=== PATIENT | male | born 1950 | race Caucasian/White ===

== ENCOUNTER 2024-05-29 15:28 | Emergency (ER) | payer MEDICARE, SELFPAY ==
[2024-05-29] VITALS (10 sets, daily range): BP systolic 90–135; BP diastolic 53–79; PULSE 68–83; RESP 16–21; TEMP 37; O2SAT 18–97
--- NOTE | ~2024-05-29 | XR_ITS ---
XR chest 1V portable Ordering provider: Theo Thompson MD History: 73 years Male with . LT side rib pain . Comparison: None. FINDINGS: MEDIASTINUM: The cardiac silhouette is not enlarged. Prominent both braydon. LUNGS: No effusions or pneumothorax. Bilateral interstitial thickening which may indicate pneumonitis . Clinical correlation advised. OTHER: No free air under the diaphragm. Degenerative changes of the spine. Vertebroplasty seen in the upper thoracic area. IMPRESSION: Bilateral interstitial thickening which may indicate pneumonitis. Clinical correlation and follow-up advised. Reviewed, dictated and finalized at location A. IMPRESSION: Bilateral interstitial thickening which may indicate pneumonitis. Clinical jessica elation and follow-up advised.
--- NOTE | 2024-05-29 16:05 | ECG_ITS ---
Test Date: 2024-05-29 15:30:27 Measurements Intervals [place] Rate: 83 P: 47 IA: 189 QRS: -56 QRSD: 130 T: 62 QT: 396 QTc: 466 Interpretive Statements SINUS RHYTHM INCOMPLETE RIGHT BUNDLE BRANCH BLOCK LEFT ANTERIOR FASCICULAR BLOCK CONSIDER HIGH LATERAL INFARCT, AGE INDETERMINATE ABNORMAL ECG No previous ECG available for comparison Electronically Signed On 05-29-2024 16:09:10 CDT by Juan Daniel Cristina D.O.
[2024-05-29 16:26] LABS: Basophils Absolute Auto 0.06 K/mm3 (0.00-0.10); Basophils Percent Auto 0.7 % (0.0-1.0); Eosinophils Absolute Auto 0.45 K/mm3 (0.02-0.50); Hematocrit 39.9 % (37.0-46.0); Hemoglobin 13.1 g/dL (12.4-15.3); Immature Granulocyte Absolute 0.04 K/mm3 (0.00-0.00); Immature Granulocyte Percent A 0.4 % (0.0-0.0); Lymphocytes Absolute Auto 1.84 K/mm3 (1.10-4.50); Lymphocytes Percent Auto 20.6 % (18.0-42.0); Mean Corpuscular HGB Conc 32.8 g/dL (32-36); Mean Corpuscular Hemoglobin 30.8 pg (27.0-31.0); Mean Corpuscular Volume 93.7 fL (78.0-102.0); Mean Platelet Volume 9.6 fl (8.7-11.0); Monocytes Absolute Auto 0.76 K/mm3 (0.10-0.90); Monocytes Percent Auto 8.5 % (2.0-11.0); Neutrophils Percent Auto 64.8 % (50.0-70.0); Platelet Count Result 258 K/mm3 (150-420); Red Blood Count 4.26 M/mm3 (4.70-6.10)
--- OUTSIDE RECORDS SUMMARY | 2024-05-29 16:31 | XMS_ITS | Clinical Summary ---
Author Organization [facility] de Address [address] [address] Phone Care Team Providers Care Zinc Plater Name Role Phone Ele Oropeza PANAMA HAT SMEARER Primary Care Provider [phone] Allergies No known active allergies Medications MELATONIN ORAL Take 1 Tablet by mouth nightly as needed. 9 Active calcium carb-vitamin D3-vit K2 500 mg calcium- 200 unit-90 mcg Tablet Take by mouth. 1 Active albuterol HFA 90 mcg inhaler Take 2 Puffs by inhalation every 6 hours as needed for Shortness of Breath. Unsure of dosage 1 Active clopidogreL (PLAVIX) 75 mg Tablet TAKE 1 TABLET BY MOUTH ONCE DAILY IN THE MORNING 60 Tablet 5 1 Active atorvastatin (LIPITOR) 40 mg tablet Take 40 mg by mouth Daily LATE. 5 Active aspirin (ECOTRIN EC) 81 mg Tablet, Delayed Release (E.C.) Take 81 mg by mouth daily with breakfast. 5 Active amLODIPine (NORVASC) 5 mg tablet Take 5 mg by mouth daily with breakfast. 7 Active losartan (COZAAR) 100 mg tablet Take 100 mg by mouth daily. 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 Hyperlipidemia 08/21/2014 AAA (abdominal aortic aneurysm) 08/21/2014 Current smoker 08/21/2014 Resolved Problems Problem Noted Date Diagnosed Date Resolved Date Atherosclerosis of belkofski ar rene of extremity with rest pain 04/15/2017 05/10/2017 Encounters Date Type Department Care Team Description 04/23/2024 External Device Data STL ABSTRACTION Provider, Abstract 04/03/2024 External Device Data STL ABSTRACTION Provider, Abstract 03/07/2024 External Device Data STL ABSTRACTION Provider, Abstract 03/06/2024 External Device Data STL ABSTRACTION Provider, Abstract from Last 3 Months Social History Tobacco Use Types Packs/Day Years Used Date Smoking Tobacco: Every Day Cigarettes Smokeless Tobacco: Never Tobacco Cessation:Ready to Q uit: Not Asked; Counseling Given: Not Answered Comments:Quit smoking: Currently smokes .5 ppd - 02/19/20 Alcohol Use Standard Drinks/Week Comments Not Asked 0 (1 standard drink = 0.6 oz pur e alcohol) Sex and Gender Information Value Date Recorded Sex Assigned at Not on file Legal Sex Male 1:27 AM DOLLYMAN Gender Identity Not on file Sexual Orientation Not on file Last Filed Vital Signs Vital Sign Reading Time Taken Comments Blood Pressure 118/60 03/02/2023 10:36 AM DOLLYMAN Pulse 65 03/02/2023 10:36 AM DOLLYMAN Temperature 36.4 C (97.5 F) 04/17/2017 7:13 AM DOLLYMAN Respiratory Rate 15 04/17/2017 7:13 AM DOLLYMAN Oxygen Saturation 96% 03/02/2023 10:36 AM DOLLYMAN Inhaled Oxygen Concentration - - Weight 77.6 kg (171 lb) 03/02/2023 10:36 AM DOLLYMAN Height 165.1 cm (5' 5 ) 03/02/2023 10:36 AM DOLLYMAN Body Mass Index 28.46 03/02/2023 10:36 AM DOLLYMAN Plan of Treatment Health Maintenance Due Date Last Done Comments FIT-DNA Q 3 years 11/11/1995 FIT/FOBT Q 1 year 11/11/1995 Flex Sig/CT Colonography Q 5 years 11/11/1995 ZOSTER VACCINE (1 of 2) 2000 RSV VACCINE (60+ or ) (1 - Risk 60-74 years 1-dose series) 2010 PNEUMOCOCCAL VACCINE 50+ YEA RS (2 of 2 - PPSV23) 02/23/2019 12/29/2018 INFLUENZA VACCINE (#1) 2023 0, 11/15/2018, 11/21/2017 COVID-19 Vaccine (3 - 2024-2 5 season) 2023 07/30/2020, 07/02/2020 COLORECTAL SCREENING 11/23/2025 11/24/2015 Colorectal Cancer Screening 11/23/2025 DTAP/TDAP/TD VACCINES (3 - T d or Tdap) 07/30/2027 07/29/2017, 02/15/2012 Abdominal Aortic Aneurysm (A AA) Screening Completed 03/02/2023, 02/24/2022, 02/19/2020, Additional history exists Medical Devices Implanted Type Area Costumed Character Entertainer Device Identifier Shelf Expiration Date Model / Serial / Lot Stent Xcldr C3 Trnk-Ipsilat Leg [id number] - [id number] Implanted:Qty: 1 on 08/21/2014 by Guanakito Inman MD Stent N/A: Abdomen [employer] 08/13/2016 [id number] / [id number] / Stent Xcldr Contralat Leg [id number] - [id number] Implanted:Qty: 1 on 08/21/2014 by Guanakito Inman MD Stent N/A: Abdomen [employer] 03/16/2017 [id number] / [id number] / Description:left common femo ral Stent Abslt Pv [id number] - Sna Implanted:Qty: 1 on 04/15/2017 by Marcel Ling MD Stent Left: Iliac Artery MCCABE- VASC DEVICE 01/14/2020 [id number] / [id number] / [id number] Description:External iliac a rtery Stent Xcldr Contralat Leg [id number] - [id number] Implanted:Qty: 1 on 04/15/2017 by Marcel Ling MD Stent Left: Aorta [employer] 04/17/2018 [id number] / [id number] / NA Stent Xcldr Iliac Data Integrity Specialist [id number] - [id number] Implanted:Qty: 1 on 04/15/2017 by Marcel Ling MD Stent Left: Iliac Artery [employer] 09/11/2018 [id number] / [id number] / NA Stent Ovation Ix Iliac Limb [id number] - Sn/A Implanted:Qty: 2 on 04/16/2017 by Marcel Ling MD Stent Right: Aorta TRIVASCULAR, INC. 01/28/2020 [id number] 100-J / N/A / [id number] Procedures Procedure Name Priority Date/Time Associated Diagnosis Comments US AORTA IVC ILIAC DUPLEX LTD Routine 03/02/2023 10:06 AM DOLLYMAN Abdominal aortic aneurysm (AAA) without rupture, unspecified part S/P AAA repair using bifurcation graft from Last 3 Months or Most Recently Relevant to Health Maintenance Results * AORTA IVC ILIAC DUPLEX LTD (03/02/2023 10:06 AM DOLLYMAN) Anatomical Region Laterality Modality Abdomen Ultrasound 03/02/2023 9:18 AM DOLLYMAN Narrative 03/07/2023 10:12 AM [facility] [address] [place] [address] [place] [id number] Noninvasive Vascular Lab Limited Abdominal Ultrasound Evaluation Patient: Caio Hanson Study ID: US AORTA IVC CHAS Gender: M : 1950 Age: 72 Room: Height: 165cm Weight: 76.7kg BSA: 1.9m^2 Pt status: Study Date: 03/02/2023 Study Time: 09:18:03 AM BSA: 1.9m^2 Ordering: Giuseppe Guardado Interpreting:Giuseppe Guardado Police Sergeant Precinct: Marilee Le Indications: Known disease. AAA with repair History: Risk factors: The patient is a current tobacco user. Hypertension. Summary Impression: 1. Moderate, dense, diffuse atherosclerosis involving the vessels assessible to study on exam. Heavy acoustic shadowing is noted due to atherosclerosi and or abdominal gas. 2. No evidence of significant change in dimension of the known abdominal aortic aneurysm. 3. Patent endograft with no evidence of endoleak is observed on exam. Recommendations: Due to excess bowel gas, patient is advised to prep prior to the next ultrasound exam. Study data: Limited abdominal ultrasound evaluation. Duplex scan. Height: 165cm. Height: 65in. Weight: 76.7kg. Weight: 169.1lb. BMI: 28.2kg/m^2. BSA: 1.9m^2. Aorta and systemic arteries: Abdominal aorta: The vessel is well visualized. Arterial flow: - Abdominal aorta proximal: Abdominal aorta proximal Obscured by bowel gas. - Abdominal aorta mid: Abdominal aorta mid 0.82m/sec 2.90 x 2.61 cm. - Abdominal aorta distal: Abdominal aorta distal 0.57m/sec 3.16 x 2.92 cm - Right common iliac: Right common iliac 1.83m/sec 1.24 x 1.18 cm. - Left common iliac: Left common iliac 0.59m/sec 1.36 x 1.31 cm. [facility] is accredited with the Intersocietal Commission for the Accreditation of Vascular Laboratories (ICAVL) Prepared and Electronically Authenticated Giuseppe Guardado Confirmed 03/07/2023 10:12 Procedure Note Giuseppe Guardado MD - 03/07/2023 [facility] [address] [place] [id number] Noninvasive Vascular Lab Limited Abdominal Ultrasound Evaluation Patient: Caio Hanson Study ID: US AORTA IVC CHAS Gender: M : 1950 Age: 72 Room: Height: 165cm Weight: 76.7kg BSA: 1.9m^2 Pt status: Study Date: 03/02/2023 Study Time: 09:18:03 AM BSA: 1.9m^2 Ordering: Giuseppe Guardado Interpreting:Giuseppe Guardado Police Sergeant Precinct: Marilee Le Indications: Known disease. AAA with repair History: Risk factors: The patient is a current tobacco user.Hypertension. Summary Impression: 1. Moderate, dense, diffuse atherosclerosis involving the vesselsassessible to study on exam. Heavy acoustic shadowing is noted due toatherosclerosi and or abdominal gas. 2. No evidence of significant change in dimension of the known abdominal aortic aneurysm. 3. Patent endograft with no evidence of endoleak is observed on exam. Recommendations: Due to excess bowel gas, patient is advised to prepprior to the next ultrasound exam. Study data: Limited abdominal ultrasound evaluation. Duplex scan. Height: 165cm. Height: 65in. Weight: 76.7kg. Weight: 169.1lb. BMI: 28.2kg/m^2. BSA: 1.9m^2. Aorta and systemic arteries: Abdominal aorta: The vessel is well visualized. Arterial flow: - Abdominal aorta proximal: Abdominal aorta proximal Obscured by bowelgas. - Abdominal aorta mid: Abdominal aorta mid 0.82m/sec 2.90 x 2.61 cm. - Abdominal aorta distal: Abdominal aorta distal 0.57m/sec 3.16 x 2.92cm - Right common iliac: Right common iliac 1.83m/sec 1.24 x 1.18 cm. - Left common iliac: Left common iliac 0.59m/sec 1.36 x 1.31 cm. [facility] is accredited withthe Intersocietal Commission for the Accreditation of Vascular Laboratories (ICAVL) Prepared and Electronically Authenticated Giuseppe Guardado Confirmed 03/07/2023 10:12 Giuseppe Guardado MD ORDERABLES Hilda cat Result from Last 3 Months or Most Recently Relevant to Health [place] [address] [address] [facility] [id number] Care Teams Zinc Plater Relationship Specialty Start Date End Date Ele Oropeza NP [address] [place] [address] PCP - General 05/23/20
--- OUTSIDE RECORDS SUMMARY | 2024-05-29 16:31 | XMS_ITS | Encounter Summary ---
Author Organization [facility] Address [address] [place] [address] Care Team Providers Care Tea Leaf Reader Name Role Phone Sandip Ele L PEARL TECHNICIAN Primary Care Provider [phone] Reason for Referral * Outpatient Services (Routine) - Closed Specialty Diagnoses / Procedures Referred By Contac t Referred To Contact Diagnoses AAA (abdominal aortic aneurysm) without rupture Procedures CL ARTERIAL FEMORAL RUNOFF Guanakito Inman MD Phone: tel:[phone] fax:[phone] Referral ID Status Reason Start Date Expiration Date Visits Re quested Visits Authorized [id number] Closed 08/21/2014 09/21/2015 1 1 Encounter Details Date Type Department Care Team (Latest Contact Info) Description 08/21/2014 Ancillary Orders [facility] Interventional Radiology OR [address] [place] [id number] Guanakito Inman MD [address] [place] [address] AAA (abdominal aortic aneurysm) without rupture (Primary Dx) Social History Tobacco Use Types Packs/Day Years Used Date Smoking Tobacco: Every Day Cigarettes 0.5 30 Smokeless Tobacco: Never Comments:Currently smokes .5 0 ppd, 08/01/14 Alcohol Use Standard Drinks/Week Comments Not Asked 0 (1 standard drink = 0.6 oz pur e alcohol) occ. Sex and Gender Information Value Date Recorded Sex Assigned at Not on file Legal Sex Male 3:44 PM CDT Gender Identity Not on file Sexual Orientation Not on file documented as of this encounter Plan of Treatment Not on file documented as of this encounter Results * CL ARTERIAL FEMORAL RUNOFF (08/21/2014 9:02 AM CDT) Narrative Bar Mcdermott Deborah - 11/28/2020 1:35 PM CDT Order information only. Exam was auto-finalized as part of the [email or web address] Single Instance conversion project. Procedure Note Bar Mcdermott Deborah - 11/28/2020 Order information only. Exam was auto-finalized as part of the [employer] Single Instance conversion project. Guanakito Inman MD FLUOROSCOPY ORDERABLES Fi nal Result documented in this encounter Visit Diagnoses Diagnosis AAA (abdominal aortic aneurysm) without rupture- Primary Abdominal aneurysm without mention of rupture documented in this encounter Care Teams Tea Leaf Reader Relationship Specialty Start Date End Date Ele Oropeza NP [address] [place] [address] PCP - General NURSE PRACTITIONER 01/22/19 documented as of this encounter
--- OUTSIDE RECORDS SUMMARY | 2024-05-29 16:31 | XMS_ITS | Continuity of Care Document ---
Author Organization [facility] Address [address] [place] [address] [address] [place] [address] Phone Care Team Providers Care Wireless Internet Installer Name Role Phone [facility] Unavailable Unavail able Jo Ceron Unavailable Unavailable Procedures Procedure Date Vision Svcs Frames Purchases BF Plastic Sphcyl [place] To +/-4d .12-2d Tax - Medical Eye Exam, New Patient Refraction Advance Directives Directive Yes / No Effective Date File Name No Information Encounters Encounter Description Practice Location Reason(s) For Visit Diagnoses Date Provider Providers Copied on Encounter [facility], [address] [place] [address] [facility] [address], [place], [place], [id number], [place] tel:[phone] [facility] No Information Apr-0 4200 8 [facility] . [address] [facility], [facility] [address], [place], [id number], [place]. tel:[phone] Referring Provider: Mar yBeth Lopez, [address], [place], [address]. tel:[phone] g Provider: Jo Ceron, [address] [facility], [place], [address]. tel:[phone] [facility], [address] [place] [address] [address], [place], [place], [id number], [place] tel:[phone] [facility] No Information May-0 4200 8 Nilda Clinton. [address] , [address], [place], [address], [place]. tel:[phone] Family History Family Member Type Diagnosis Age At Onset No Information Payers Payer name Insurance type Covered alliance party ID Authoriza tion(s) No Information Social History Type Description Quantity Date Captured Comments Sex Male Smoking Status No Information Chief Complaint And Reason For Visit No Information Reason For Referral Reason For Referral No Information History Of Present Illness Encounter Date Complaint History Of Prese nt Illness No Information Functional Status Date Functional Assessmen t No Information Instructions Date Instruction Additional Infor mation No Information Assessments Type Assessment Date No Information Patient Care Teams Name Effective Dates (start - stop) Status Members No Information
--- OUTSIDE RECORDS SUMMARY | 2024-05-29 16:31 | XMS_ITS | Clinical Summary ---
Author Organization [facility] de Address [address] [address] Phone Care Team Providers Care Repair Mechanic Name Role Phone Sandip Ele L SPEAKER MOUNTER Primary Care Provider [phone] Allergies No known active allergies Medications atorvastatin (LIPITOR) 40 mg tablet Take 40 mg by mouth Daily LATE. Active aspirin (ECOTRIN EC) 81 mg Tablet, Delayed Release (E.C.) Take 81 mg by mouth daily with breakfast. Active losartan (COZAAR) 100 mg tablet Take 100 mg by mouth daily. Active amLODIPine (NORVASC) 5 mg tablet Take 5 mg by mouth daily with breakfast. Active MELATONIN ORAL Take 1 Tablet by mouth nightly as needed. Active albuterol HFA 90 mcg inhaler Take 2 Puffs by inhalation every 6 hours as needed for Shortness of Breath. Unsure of dosage Active calcium carb-vitamin D3-vit K2 500 mg calcium- 200 unit-90 mcg Tablet Take by mouth. 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 AAA (abdominal aortic aneurysm) 08/21/2014 Current smoker 08/21/2014 Hyperlipidemia 08/21/2014 Resolved Problems Problem Noted Date Diagnosed Date Resolved Date Atherosclerosis of nisqually ar rene of extremity with rest pain 04/15/2017 05/10/2017 Social History Tobacco Use Types Packs/Day Years Used Date Smoking Tobacco: Every Day Cigarettes 1.5 40 Smokeless Tobacco: Never Comments:Currently smokes .5 ppd - 02/19/20 Alcohol Use [...] Sign Reading Time Taken Comments Blood Pressure 112/55 02/19/2020 12:01 PM RED HAT OPEN STACK ADMINISTRATOR Pulse 85 02/19/2020 12:01 PM RED HAT OPEN STACK ADMINISTRATOR Temperature 36.4 C (97.5 F) 04/17/2017 7:13 AM RED HAT OPEN STACK ADMINISTRATOR Respiratory Rate 15 04/17/2017 7:13 AM RED HAT OPEN STACK ADMINISTRATOR Oxygen Saturation 97% 02/19/2020 12:01 PM RED HAT OPEN STACK ADMINISTRATOR Inhaled Oxygen Concentration - - Weight 73 kg (161 lb) 02/19/2020 12:01 PM RED HAT OPEN STACK ADMINISTRATOR Height 167.6 cm (5' 6 ) 02/19/2020 12:01 PM RED HAT OPEN STACK ADMINISTRATOR Body Mass Index 25.99 02/19/2020 12:01 PM RED HAT OPEN STACK ADMINISTRATOR Plan of Treatment Health Maintenance Due Date Last Done Comments DTAP/TDAP/TD VACCINES (1 - Tdap) 1969 PNEUMOCOCCAL VACCINE 50+ YEARS (1 of 2 - PCV) 11/10/18 70 COLORECTAL SCREENING 11/11/1995 Colorectal Cancer Screening 11/11/1995 FIT-DNA Q 3 years 11/11/1995 FIT/FOBT Q 1 year 11/11/1995 Flex Sig/CT Colonography Q 5 years 11/11/1995 ZOSTER VACCINE (1 of 2) 2000 INFLUENZA VACCINE (#1) 2023 RSV VACCINE (60+ or ) (1 - 1-dose 75+ series) 2025 Medical Devices Implanted Type Area Plastic Mould Maker Device Identifier Shelf Expiration Date Model / Serial / Lot Stent Xcldr C3 Trnk-Ipsilat Leg [id number] - [id number] Implanted:Qty: 1 on 08/21/2014 by Guanakito Inman MD at [facility] Stent N/A: Abdomen [employer] 08/13/2016 [id number] / [id number] / Stent Xcldr Contralat Leg [id number] - [id number] Implanted:Qty: 1 on 08/21/2014 by Guanakito Inman MD at [facility] Stent N/A: Abdomen [employer] 03/16/2017 [id number] / [id number] / Description:left common femo ral Stent Xcldr Contralat Leg [id number] - [id number] Implanted:Qty: 1 on 04/15/2017 by Marcel Ling MD at [facility] Stent Left: Aorta [employer] 04/17/2018 [id number] / [id number] / NA Stent Xcldr Iliac Hot Box Checker [id number] - [id number] Implanted:Qty: 1 on 04/15/2017 by Marcel Ling MD at [facility] Stent Left: Iliac Artery [employer] 09/11/2018 [id number] / [id number] / NA Stent Abslt Pv [id number] - Sna Implanted:Qty: 1 on 04/15/2017 by Marcel Ling MD at [facility] Stent Left: Iliac Artery MCCABE- VASC DEVICE 01/14/2020 [id number] 0 / [id number] / [id number] Description:External iliac a rtery Stent Ovation Ix Iliac Limb [id number] - Sn/A Implanted:Qty: 2 on 04/16/2017 by Marcel Ling MD at [facility] Stent Right: Aorta TRIVASCULAR[employer] INC. 01/28/2020 [id number] 100-J / N/A / [id number] Insurance [place] [id number] [facility] DUAL COMPLETE Advance Directives For more information, please contact: [phone] * Full Code (Latest Code Status on File) Date Activated Date Inactivated Comments 04/16/2017 4:30 PM 04/17/2017 2:21 PM * Full Code Date Activated Date Inactivated Comments 08/21/2014 4:44 PM 08/22/2014 2:20 PM Care Teams Repair Mechanic Relationship Specialty Start Date End Date Ele Oropeza NP [address] [place] [address] PCP - General NURSE PRACTITIONER 01/22/19
[2024-05-29 16:45] LABS: Alanine Aminotransferase 18 U/L (16-63); Albumin Level 3.4 g/dL (3.4-5.0); Alkaline Phosphatase 141 U/L (46-116); Anion Gap 9 mmol/L (4-12); Aspartate Amino Transferase 18 U/L (15-37); Bilirubin,Total 0.6 mg/dL (0.00-1.00); Blood Urea Nitrogen 21 mg/dL (7-18); Carbon Dioxide 28 mmol/L (21-32); Chloride 105 mmol/L (98-108); Estimated CRCL calculation 51 ml/min; Estimated Glomerular Filt Rate > 60; Glucose 96 mg/dL (70-99); Osmolality Calculated 297 mOsm/kg (285-295); Potassium 4.4 mmol/L (3.5-5.1); Sodium 142 mmol/L (136-145); Total Protein 7.9 g/dL (6.4-8.2); Troponin I 15.9 ng/L (0.00-60.4)
[2024-05-29] MEDS: KETOROLAC (*BKC) 60 MG/2 ML VIAL IM (16:45)
--- OUTSIDE RECORDS SUMMARY | 2024-05-29 16:55 | XMS_ITS | Clinical Summary ---
Author Organization [facility] de Address [address] [address] Phone Care Team Providers Care Tearer Name Role Phone Sandip Ele L ALL ROUND LOGGER Primary Care Provider [phone] Allergies No known active allergies Medications atorvastatin [...] Date Diagnosed Date Resolved Date Atherosclerosis of pala ar rene of extremity with rest pain [...] Comments Blood Pressure 112/55 02/19/2020 12:01 PM CRITICAL CARE NURSE SPECIALIST Pulse 85 02/19/2020 12:01 PM CRITICAL CARE NURSE SPECIALIST Temperature 36.4 C (97.5 F) 04/17/2017 7:13 AM CRITICAL CARE NURSE SPECIALIST Respiratory Rate 15 04/17/2017 7:13 AM CRITICAL CARE NURSE SPECIALIST Oxygen Saturation 97% 02/19/2020 12:01 PM CRITICAL CARE NURSE SPECIALIST Inhaled Oxygen Concentration - - Weight 73 kg (161 lb) 02/19/2020 12:01 PM CRITICAL CARE NURSE SPECIALIST Height 167.6 cm (5' 6 ) 02/19/2020 12:01 PM CRITICAL CARE NURSE SPECIALIST Body Mass Index 25.99 02/19/2020 12:01 PM CRITICAL CARE NURSE SPECIALIST Plan of Treatment Health Maintenance Due Date [...] series) 2025 Medical Devices Implanted Type Area Tire Wrapper Device Identifier Shelf Expiration Date Model / Serial / Lot Stent Xcldr C3 Trnk-Ipsilat Leg [id number] - [id number] Implanted:Qty: 1 on 08/21/2014 by Guanakito Inman MD at [facility] Stent N/A: Abdomen [employer] 08/13/2016 [id number] / [id number] / Stent Xcldr Contralat Leg [id number] - [id number] Implanted:Qty: 1 on 08/21/2014 by Guanakito Inman MD at [facility] Stent N/A: Abdomen [employer] 03/16/2017 [id number] / [id number] / Description:left common femo ral Stent Xcldr Contralat Leg [id number] - [id number] Implanted:Qty: 1 on 04/15/2017 by Marcel Ling MD at [facility] Stent Left: Aorta [employer] 04/17/2018 [id number] / [id number] / NA Stent Xcldr Iliac Employment Adjudicator [id number] - [id number] Implanted:Qty: 1 on 04/15/2017 by Marcel Ling MD at [facility] Stent Left: Iliac Artery [employer] 09/11/2018 [id number] / [id number] / NA Stent Abslt Pv [id number] - Sna Implanted:Qty: 1 on 04/15/2017 by Marcel Ling MD at [facility] Stent Left: Iliac Artery MCCABE- VASC DEVICE 01/14/2020 [id number] 0 / NA / [id number] Description:External iliac a rtery Stent Ovation Ix Iliac Limb [id number] - Sn/A Implanted:Qty: 2 on 04/16/2017 by Marcel Ling MD at [facility] Stent Right: Aorta TRIVASCULAR[employer]. 01/28/2020 [id number] 100-J / N/A / [id number] Insurance [place] [id number] [facility] [place] [address] Advance Directives For more information, please contact: [phone] * Full Code (Latest Code Status on File) Date Activated Date Inactivated Comments 04/16/2017 4:30 PM 04/17/2017 2:21 PM * Full Code Date Activated Date Inactivated Comments 08/21/2014 4:44 PM 08/22/2014 2:20 PM Care Teams Tearer Relationship Specialty Start Date End Date Ele Oropeza NP [address] [place] [address] PCP - General NURSE PRACTITIONER 01/22/19
--- OUTSIDE RECORDS SUMMARY | 2024-05-29 16:55 | XMS_ITS | Continuity of Care Document ---
Author Organization [facility] Address [address] [place] [address] [address] [place] [address] Phone Care Team Providers Care Box Sealing Machine Operator Name Role Phone [facility] Unavailable Unavail able Jo Ceron Unavailable Unavailable Procedures Procedure Date Vision Svcs Frames Purchases BF Plastic Sphcyl [place] To +/-4d .12-2d Tax - Medical Eye Exam, New Patient Refraction Advance Directives Directive Yes / No Effective Date File Name No Information Encounters Encounter Description Practice Location Reason(s) For Visit Diagnoses Date Provider Providers Copied on Encounter [facility], [address] [place] [address] [facility] [place], [place], [id number], [place] tel:[phone] SEC [facility] No Information Apr-0 4200 8 [facility] . [address] [facility], [facility] [address], [place], [id number], [place]. tel:[phone] Referring Provider: Mary Beth Lopez, [address] [facility] [address], [place], [address]. tel:[phone] g Provider: Jo Ceron, [address] [facility], [place], [address]. tel:[phone] [facility], [address] [place] [address] [address], [place], [place], [id number], [place] tel:[phone] SEC [facility] No Information May-0 4200 8 Nilda Clinton. [address] [facility] , [address], [place], [address], [place]. tel:[phone] Family History Family Member Type Diagnosis Age At Onset No Information Payers Payer name Insurance type Covered democrat ID Authoriza tion(s) No Information Social History [...]
--- OUTSIDE RECORDS SUMMARY | 2024-05-29 16:55 | XMS_ITS | Encounter Summary ---
Author Organization [facility] Address [address] [place] [address] Care Team Providers Care Service Consultant Name Role Phone Sandip Ele L CHANGE MANAGEMENT LEAD Primary Care Provider [phone] Reason for Referral * Outpatient Services (Routine) - Closed Specialty Diagnoses / Procedures Referred By Contac t Referred To Contact Diagnoses AAA (abdominal aortic aneurysm) without rupture Procedures CL ARTERIAL FEMORAL RUNOFF Guanakito Inman MD Phone: tel:[phone] fax:[phone] Referral ID Status Reason Start Date Expiration Date Visits Re quested Visits Authorized [id number] Closed 08/21/2014 09/21/2015 1 1 Encounter Details Date Type Department Care Team (Latest Contact Info) Description 08/21/2014 Ancillary Orders [facility] Interventional Radiology OR [address] [place] [id number] Guanakito nIman MD [address] [place] [address] AAA (abdominal aortic aneurysm) without rupture (Primary [...] Exam was auto-finalized as part of the Electronic [employer]iller Single Instance conversion project. Procedure Note Bar Mcdermott Deborah - 11/28/2020 Order information only. Exam was auto-finalized as part of the [employer] Single Instance conversion project. Guanakito Inman MD FLUOROSCOPY ORDERABLES Fi nal Result documented in this encounter Visit Diagnoses Diagnosis AAA (abdominal aortic aneurysm) without rupture- Primary Abdominal aneurysm without mention of rupture documented in this encounter Care Teams Service Consultant Relationship Specialty Start Date End Date Ele Oropeza NP [address] [place] [address] PCP - General NURSE PRACTITIONER 01/22/19 documented as of this encounter
--- OUTSIDE RECORDS SUMMARY | 2024-05-29 16:56 | XMS_ITS | Clinical Summary ---
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 with rest pain [...] on file Legal Sex Male 1:27 AM BURLAP BAG SEWER Gender Identity Not on file Sexual Orientation Not on file Last Filed Vital Signs Vital Sign Reading Time Taken Comments Blood Pressure 118/60 03/02/2023 10:36 AM BURLAP BAG SEWER Pulse 65 03/02/2023 10:36 AM BURLAP BAG SEWER Temperature 36.4 C (97.5 F) 04/17/2017 7:13 AM BURLAP BAG SEWER Respiratory Rate 15 04/17/2017 7:13 AM BURLAP BAG SEWER Oxygen Saturation 96% 03/02/2023 10:36 AM BURLAP BAG SEWER Inhaled Oxygen Concentration - - Weight 77.6 kg (171 lb) 03/02/2023 10:36 AM BURLAP BAG SEWER Height 165.1 cm (5' 5 ) 03/02/2023 10:36 AM BURLAP BAG SEWER Body Mass Index 28.46 03/02/2023 10:36 AM BURLAP BAG SEWER Plan of Treatment Health Maintenance Due Date [...] history exists Medical Devices Implanted Type Area Product Control And Logistics Analyst Device Identifier Shelf Expiration Date Model / Serial / Lot Stent Xcldr C3 Trnk-Ipsilat Leg [id number] - [id number] Implanted:Qty: 1 on 08/21/2014 by Guanakito Inman MD Stent N/A: Abdomen [employer] 08/13/2016 [id number] / [id number] / Stent Xcldr Contralat Leg [id number] - [id number] Implanted:Qty: 1 on 08/21/2014 by Guanakito Inman MD Stent N/A: Abdomen [employer] 03/16/2017 [id number] / [id number] / Description:left common femo ral Stent Abslt Pv [id number] - Sna Implanted:Qty: 1 on 04/15/2017 by Marcel Ling MD Stent Left: Iliac Artery MCCABE- VASC DEVICE 01/14/2020 [id number] / [id number] / [id number] Description:External iliac a rtery Stent Xcldr Contralat Leg [id number] - [id number] Implanted:Qty: 1 on 04/15/2017 by Marcel Ling MD Stent Left: Aorta [employer] 04/17/2018 [id number] / [id number] / NA Stent Xcldr Iliac Collision Estimator [id number] - [id number] Implanted:Qty: 1 on 04/15/2017 by Marcel Ling MD Stent Left: Iliac Artery [employer] 09/11/2018 [id number] / [id number] / NA Stent Ovation Ix Iliac Limb [id number] - Sn/A Implanted:Qty: 2 on 04/16/2017 by Marcel Ling MD Stent Right: Aorta TRIV[employer]. 01/28/2020 [id number] 100-J / N/A / [id number] Procedures Procedure Name Priority Date/Time Associated Diagnosis Comments US AORTA IVC ILIAC DUPLEX LTD Routine 03/02/2023 10:06 AM BURLAP BAG SEWER Abdominal aortic aneurysm (AAA) without rupture, unspecified part S/P AAA repair using bifurcation graft from Last 3 Months or Most Recently Relevant to Health Maintenance Results * AORTA IVC ILIAC DUPLEX LTD (03/02/2023 10:06 AM BURLAP BAG SEWER) Anatomical Region Laterality Modality Abdomen Ultrasound 03/02/2023 9:18 AM BURLAP BAG SEWER Narrative 03/07/2023 10:12 AM [facility] [address] [place] [address] [place] [address] Noninvasive Vascular Lab Limited Abdominal Ultrasound Evaluation Patient: Caio Hanson Study ID: US AORTA IVC CHAS Gender: M : 1950 Age: 72 Room: Height: 165cm Weight: 76.7kg BSA: 1.9m^2 Pt status: Study Date: 03/02/2023 Study Time: 09:18:03 AM BSA: 1.9m^2 Ordering: Giuseppe Guardado Interpreting:Giuseppe Guardado User Experience Researcher: Marilee Le Indications: Known disease. AAA with [...] common iliac 0.59m/sec 1.36 x [address] [facility] is accredited with the Intersocietal Commission for the Accreditation of Vascular Laboratories (ICAVL) Prepared and Electronically Authenticated Giuseppe Guardado Confirmed 03/07/2023 10:12 Procedure Note Giuseppe Guardado MD - 03/07/2023 [facility] [address] [place] [address] Noninvasive Vascular Lab Limited Abdominal Ultrasound Evaluation Patient: Caio Hanson Study ID: US AORTA IVC CHAS Gender: M : 1950 Age: 72 Room: Height: 165cm Weight: 76.7kg BSA: 1.9m^2 Pt status: Study Date: 03/02/2023 Study Time: 09:18:03 AM BSA: 1.9m^2 Ordering: Giuseppe Guardado Interpreting:Giuseppe Guardado User Experience Researcher: Marilee Le Indications: Known disease. AAA with [...] common iliac 0.59m/sec 1.36 x [address] [facility] is accredited withthe Intersocietal Commission for the Accreditation of Vascular Laboratories (ICAVL) Prepared and Electronically Authenticated Giuseppe Guardado Confirmed 03/07/2023 10:12 Giuseppe Guardado MD ORDERABLES Hilda cat Result from Last 3 Months or Most Recently Relevant to Health [place] [address] [place] [address] [facility] [id number] Care Teams Asphalt Plant Worker Relationship Specialty Start Date End Date Ele Oropeza NP [address] [place] [address] PCP - General 05/23/20
--- NOTE | 2024-05-29 17:44 | PC.NURSE ---
PT IS LYING ON STRETCHER WITH ARM BEHIND HIS HEAD WATCHING TV WITH AT BEDSIDE. PT REPORTS NO PAIN IMPROVEMENT, IT JUST RELAXED ME. ERP IS AWARE. PT IS AWAITING DECISION AT THIS TIME. WILL CONTINUE TO MONITOR.
--- NOTE | 2024-05-29 17:57 | ED_ITS ---
HPI - Chest Pain General Chief Complaint: Chest Pain Stated Complaint: chest pain Time Seen by Provider: 05/29/24 15:41 Source: patient Mode of arrival: ambulatory Limitations: no limitations History of Present Illness HPI narrative: patient is a 73-year-old male with a significant past medical history that presents today with chest pain. His aunt has some chest pain on the left side of his chest. He says it feels like a popping and crackling sensation the left side. He says that it started yesterday on continued to get worse him is very painful with a 6/10 pain. Denies any shortness of breath or any other symptoms no cardiac history this seems more to be musculoskeletal in nature. It is palpable pain reproducible. MD complaint: chest pain Pertinent past history: other ( LVAD) Onset (ago): day(s) Timing of current episode: episodic Prior episodes: No Onset: during rest Pain location: left chest Pain radiation: none Severity: moderate Pain scale (0-10): 6 Quality: heaviness Relieving factors: nothing Exacerbating factors: exertion and movement Context: trauma/injury Treatment prior to arrival: none Risk Factors Coronary artery disease risk factors: none Thoracic aortic dissection risk factors: none Related Data Allergies Allergy/AdvReac Type Severity Reaction Status Date / Time No Known Allergies Allergy Unknown Unverified 05/29/24 15:53 Review of Systems 2 Review of Systems: All systems reviewed & are unremarkable except as noted in HPI and below Constitutional: Constitutional: Reports as per HPI and Reports no additional constitutional complaints Eyes: Eyes: Reports no additional eye complaints ENT: Reports system reviewed and no additional complaints, except as documented Cardiovascular: Cardiovascular: Reports chest pain Respiratory: Respiratory: Reports no additional respiratory complaints Gastrointestinal: Gastrointestinal: Reports no additional gastrointestinal complaints Genitourinary: Genitourinary: Reports no additional male genitourinary complaints Musculoskeletal: Musculoskeletal: Reports no additional musculoskeletal complaints Integumentary/Breasts: Skin/Breast: Reports system reviewed and no additional complaints, except as docu Neurologic: Reports system reviewed and no additional complaints, except as documented Psychiatric: Psychiatric: Reports no additional psychiatric complaints Endocrine: Endocrine: Reports no additional endocrine complaints Hematologic/Lymphatic: Hematologic/Lymphatic: Reports no additional hematologic/lymphatic complaints Allergic/Immunologic: Allergic/Immunologic: Reports no additional allergic/immunologic complaints Exam 2 Const: General: cooperative Nutritional Appearance: average body habitus Orientation/consciousness: oriented to person HENMT: Head: normal to inspection Ears: hearing grossly normal bilaterally Face and sinus: normal facial exam Mouth: Yes Normal oral and palatal mucosa present Teeth and gingiva: dentition normal Eyes: General: appearance normal, both eyes and all related structures Neck: Neck: normal visual inspection Chest: Chest palpation & inspection: normal inspection of the chest Resp: Effort & Inspection: normal respiratory effort Auscultation: clear to auscultation bilaterally Percussion: percussion normal Cardio: Jugular venous distension: no JVD Palpation: normal PMI Rate: r egular rate Rhythm: regular rhythm GI: Inspection: normal to inspection GI Palp: Yes abdominal tenderness Back/Spine/Pelvis: Back: no CVA tenderness Skin: General skin exam: normal color and no rashes or lesions noted Neuro: General: oriented to person and oriented to place Cranial nerves: Y es CN's II-XII intact bilaterally Cognition (Neuro): normal cognition S peech: normal speech Gait exam (Neuro): Normal gait present Motor exam (neuro): 5/5 motor strength present throughout Sensory Exam: normal sensation Extrem: General: normal to inspection Right upper extremity: normal to inspection Left upper extremity: normal to inspection Right lower extremity: normal to inspection Left lower extremity: normal to inspection Psych: Appearance: grossly normal Mental Status: mental status grossly normal Speech and movement: Normal speech and movement present Course Vital Signs Vital signs: Vital Signs Oxygen Delivery Room Air 05/29/24 15:28 Temperature 98.6 F 05/29/24 15:32 Pulse Rate 72 05/29/24 17:30 Respiratory Rate 20 05/29/24 17:30 Blood Pressure 109/59 L 05/29/24 17:30 Pulse Oximetry 97 05/29/24 17:30 Oxygen Delivery Room Air 05/29/24 15:32 MDM - Chest Pain MDM Narrative Medical decision making narrative: patient has no cardiac history but does have pain on the left side but the pain is reproducible and palpable. Most likely this is probably disc also chondritis or may be a type pneumonitis but will do a full cardiac workup on him just to ensure this. Will turn his troponins full blood work and chest x-ray and EKG. Chest x-ray showed pneumonitis which makes sense with the popping and crumbling sensation that has been making which I also think he has some costochondritis as well. Differential Diagnosis Differential diagnosis: Likely costochondritis and other ( Pneumonitis) Medical Records Data Attestation: I reviewed the patient's medical records. Lab Data Attestation: I reviewed the patient's lab results. 05/29/24 16:23 05/29/24 16:23 Labs: Lab Results 05/29/24 Range/Units 16:23 WBC 9.0 (4.8-10.8) K/mm3 RBC 4.26 L (4.70-6.10) M/mm3 Hgb 13.1 (12.4-15.3) g/dL Hct 39.9 (37.0-46.0) % MCV 93.7 (78.0-102.0) fL MCH 30.8 (27.0-31.0) pg MCHC 32.8 (32-36) g/dL RDW 14.0 (11.6-14.4) % Plt Count 258 (150-420) K/mm3 MPV 9.6 (8.7-11.0) fl Immature Gran % (Auto) 0.4 H (0.0-0.0) % Neut % (Auto) 64.8 (50.0-70.0) % Lymph % (Auto) 20.6 (18.0-42.0) % Greene % (Auto) 8.5 (2.0-11.0) % Eos % (Auto) 5.0 (1.0-6.0) % Baso % (Auto) 0.7 (0.0-1.0) % Lymph # (Auto) 1.84 (1.10-4.50) K/mm3 Greene # (Auto) 0.76 (0.10-0.90) K/mm3 Eos # (Auto) 0.45 (0.02-0.50) K/mm3 Baso # (Auto) 0.06 (0.00-0.10) K/mm3 Abs Immat Gran (auto) 0.04 H (0.00-0.00) K/mm3 Absolute Neuts (auto) 5.80 (1.70-7.20) K/mm3 Absolute Nucleated RBC 0.00 (0.00-0.00) K/mm3 Nucleated RBC % 0.0 (0-0.0) % Sodium 142 (136-145) mmol/L Potassium 4.4 (3.5-5.1) mmol/L Chloride 105 (98-108) mmol/L Carbon Dioxide 28 (21-32) mmol/L Anion Gap 9 (4-12) mmol/L BUN 21 H (7-18) mg/dL Creatinine 1.02 (0.70-1.30) mg/dL Estim Creat Clear Calc 51 ml/min Estimated GFR > 60 (59 - ) Glucose 96 (70-99) mg/dL Calculated Osmolality 297 H (285-295) mOsm/kg Calcium 10.0 (8.5-10.1) mg/dL Total Bilirubin 0.6 (0.00-1.00) mg/dL AST 18 (15-37) U/L ALT 18 (16-63) U/L Alkaline Phosphatase 141 H (46-116) U/L Troponin I 15.9 (0.00-60.4) ng/L Total Protein 7.9 (6.4-8.2) g/dL Albumin 3.4 (3.4-5.0) g/dL Imaging Data Attestation: I personally reviewed and interpreted this imaging study as follows: Discharge Plan Discharge Clinical Impression: Costalchondritis, Pneumonitis Patient Disposition: Home Condition: Stable Instructions: Costochondritis (ED) Additional Instructions: take ibuprofen as needed and use a heating pack around the area. Patient Language: Amharic Follow-up/Referrals: Sincere Pettit DO [Primary Care Provider] - Time of Disposition: 18:11
== END 2024-05-29 18:15 | disposition home or self-care (01) ==
PROVIDERS: Emergency Provider Family Medicine; PCP Family Medicine
DX: M94.0 Chondrocostal junction syndrome [Tietze] (principal); J98.4 Other disorders of lung
CPT/HCPCS: 36415; 71045; 80053; 84484; 85025; 93005; 96372; 99284; J1885

== ENCOUNTER 2024-06-21 13:54 | Outpatient (CLI) | payer MEDICARE, SELFPAY ==
--- OUTSIDE RECORDS SUMMARY | 2024-06-21 14:01 | XMS_ITS | Continuity of Care Document ---
Author Organization [facility] Address [address] [place] [address] [address] [place] [address] Phone Care Team Providers Care Dining Car Steward Name Role Phone [facility] Unavailable Unavail able Jo Ceron Unavailable Unavailable Procedures Procedure Date Vision Svcs Frames Purchases BF Plastic Sphcyl [place] To +/-4d .12-2d Tax - Medical Eye Exam, New Patient Refraction Advance Directives Directive Yes / No Effective Date File Name No Information Encounters Encounter Description Practice Location Reason(s) For Visit Diagnoses Date Provider Providers Copied on Encounter [facility], [address] [place] [address] [facility], [place], [place], [id number], [place] tel:[phone] SEC [facility] No Information Apr-0 4200 8 [facility] . [address] [facility], [facility] [address], [place], [id number], [place]. tel:[phone] Referring Provider: Mary Beth Lopez, [address] [facility] [address], [place], [address]. tel:[phone] g Provider: Jo Ceron, [address] [facility], [place], [address]. tel:[phone] [facility], [address] [place] [address] [address], [place], [place], [id number], [place] tel:[phone] [facility] No Information May-0 4200 8 Nilda Clinton. [address] [facility] , [address], [place], [address], [place]. tel:[phone] Family History Family Member Type Diagnosis Age At Onset No Information Payers Payer name Insurance type Covered constitution party ID Authoriza tion(s) No Information Social [...]
--- OUTSIDE RECORDS SUMMARY | 2024-06-21 14:01 | XMS_ITS | Clinical Summary ---
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 with rest pain [...] on file Legal Sex Male 1:27 AM RATE AND COST ANALYST Gender Identity Not on file Sexual Orientation Not on file Last Filed Vital Signs Vital Sign Reading Time Taken Comments Blood Pressure 118/60 03/02/2023 10:36 AM RATE AND COST ANALYST Pulse 65 03/02/2023 10:36 AM RATE AND COST ANALYST Temperature 36.4 C (97.5 F) 04/17/2017 7:13 AM RATE AND COST ANALYST Respiratory Rate 15 04/17/2017 7:13 AM RATE AND COST ANALYST Oxygen Saturation 96% 03/02/2023 10:36 AM RATE AND COST ANALYST Inhaled Oxygen Concentration - - Weight 77.6 kg (171 lb) 03/02/2023 10:36 AM RATE AND COST ANALYST Height 165.1 cm (5' 5 ) 03/02/2023 10:36 AM RATE AND COST ANALYST Body Mass Index 28.46 03/02/2023 10:36 AM RATE AND COST ANALYST Plan of Treatment Health Maintenance Due Date Last Done Comments FIT-DNA Q 3 years 11/11/1995 FIT/FOBT Q 1 year 11/11/1995 Flex Sig/CT Colonography Q 5 years 11/11/1995 ZOSTER VACCINE (1 of 2) 2000 RSV VACCINE (60+ or ) (1 - Risk 60-74 years 1-dose series) 2010 PNEUMOCOCCAL VACCINE 50+ YEA RS (2 of 2 - PPSV23) 02/23/2019 12/29/2018 INFLUENZA VACCINE (#1) 2023 , 11/15/2018, 11/21/2017 COVID-19 Vaccine (3 - season) 2023, 07/02/2020 COLORECTAL SCREENING 11/23/2025 11/24/2015 Colorectal Cancer Screening 11/23/2025 DTAP/TDAP/TD VACCINES (3 - T d or Tdap) 07/30/2027 07/29/2017, 02/15/2012 Medical Devices Implanted Type Area Reading Specialist Device Identifier Shelf Expiration Date Model / Serial / Lot Stent Xcldr C3 Trnk-Ipsilat Leg [id number] - [id number] Implanted:Qty: 1 on 08/21/2014 by Guanakito Inman MD Stent N/A: Abdomen [employer] 08/13/2016 [id number] / [id number] / Stent Xcldr Contralat Leg [id number] - [id number] Implanted:Qty: 1 on 08/21/2014 by Guanakito Inman MD Stent N/A: Abdomen [employer] 03/16/2017 [id number] / [id number] / Description:left common femo ral Stent Abslt Pv [id number] - Sna Implanted:Qty: 1 on 04/15/2017 by Marcel Ling MD Stent Left: Iliac Artery MCCABE- VASC DEVICE 01/14/2020 [id number] / [id number] / [id number] Description:External iliac a rtery Stent Xcldr Contralat Leg [id number] - [id number] Implanted:Qty: 1 on 04/15/2017 by Marcel Ling MD Stent Left: Aorta [employer] 04/17/2018 [id number] / [id number] / NA Stent Xcldr Iliac Dock Guard [id number] - [id number] Implanted:Qty: 1 on 04/15/2017 by Marcel Ling MD Stent Left: Iliac Artery [employer] 09/11/2018 [id number] / [id number] / NA Stent Ovation Ix Iliac Limb [id number] - Sn/A Implanted:Qty: 2 on 04/16/2017 by Marcel Ling MD Stent Right: Aorta [employer]IV[employer]. 01/28/2020 [id number] 100-J / N/A / [id number] Insurance [place] [id number] [facility] [id number] Care Teams Prototype Machine Operator Relationship Specialty Start Date End Date Ele Oropeza NP [address] [place] [id number] PCP - General 05/23/20
--- OUTSIDE RECORDS SUMMARY | 2024-06-21 14:01 | XMS_ITS | Clinical Summary ---
Author Organization [facility] de Address [address] [address] Phone Care Team Providers Care Demonstrator Sewing Techniques Name Role Phone Sandip Ele L REGISTER OF WILLS Primary Care Provider [phone] Allergies No known active allergies Medications atorvastatin [...] Date Diagnosed Date Resolved Date Atherosclerosis of [place] ar rene of extremity with rest pain [...] Comments Blood Pressure 112/55 02/19/2020 12:01 PM PATTERNMAKER PLASTER Pulse 85 02/19/2020 12:01 PM PATTERNMAKER PLASTER Temperature 36.4 C (97.5 F) 04/17/2017 7:13 AM PATTERNMAKER PLASTER Respiratory Rate 15 04/17/2017 7:13 AM PATTERNMAKER PLASTER Oxygen Saturation 97% 02/19/2020 12:01 PM PATTERNMAKER PLASTER Inhaled Oxygen Concentration - - Weight 73 kg (161 lb) 02/19/2020 12:01 PM PATTERNMAKER PLASTER Height 167.6 cm (5' 6 ) 02/19/2020 12:01 PM PATTERNMAKER PLASTER Body Mass Index 25.99 02/19/2020 12:01 PM PATTERNMAKER PLASTER Plan of Treatment Health Maintenance Due Date [...] series) 2025 Medical Devices Implanted Type Area Senior Product Development Scientist Device Identifier Shelf Expiration Date Model / Serial / Lot Stent Xcldr C3 Trnk-Ipsilat Leg [id number] - [id number] Implanted:Qty: 1 on 08/21/2014 by Guanakito Inman MD at [facility] Stent N/A: Abdomen [employer] 08/13/2016 [id number] / [id number] / Stent Xcldr Contralat Leg [id number] - [id number] Implanted:Qty: 1 on 08/21/2014 by Guanakito Inman MD at [facility] Stent N/A: Abdomen [employer] 03/16/2017 [id number] / [id number] / Description:left common femo ral Stent Xcldr Contralat Leg [id number] - [id number] Implanted:Qty: 1 on 04/15/2017 by Marcel Ling MD at [facility] Stent Left: Aorta [employer] 04/17/2018 [id number] / [id number] / NA Stent Xcldr Iliac Travel Agent [id number] - [id number] Implanted:Qty: 1 on 04/15/2017 by Marcel Ling MD at [facility] Stent Left: Iliac Artery [employer] 09/11/2018 [id number] / [id number] / NA Stent Abslt Pv [id number] - Sna Implanted:Qty: 1 on 04/15/2017 by Marcel Ling MD at [facility] Stent Left: Iliac Artery MCCABE- VASC DEVICE 01/14/2020 [id number] / [id number] / [id number] Description:External iliac a rtery Stent Ovation Ix Iliac Limb [id number] - Sn/A Implanted:Qty: 2 on 04/16/2017 by Marcel Ling MD at [facility] Stent Right: Aorta TRIVASCULAR, INC. 01/28/2020 [id number] 100-J / N/A / [id number] Insurance [place] [id number] [facility] DUAL COMPLETE Advance Directives For more information, please contact: [phone] * Full Code (Latest Code Status on File) Date Activated Date Inactivated Comments 04/16/2017 4:30 PM 04/17/2017 2:21 PM * Full Code Date Activated Date Inactivated Comments 08/21/2014 4:44 PM 08/22/2014 2:20 PM Care Teams Demonstrator Sewing Techniques Relationship Specialty Start Date End Date Ele Oropeza NP 2 [place] [address] PCP - General NURSE PRACTITIONER 01/22/19
--- OUTSIDE RECORDS SUMMARY | 2024-06-21 14:01 | XMS_ITS | Encounter Summary ---
Author Organization [facility] Address [address] [place] [address] Care Team Providers Care Sub Prior Name Role Phone Sandip Ele L CATERING COORDINATOR Primary Care Provider [phone] Reason for Referral * Outpatient Services (Routine) - Closed Specialty Diagnoses / Procedures Referred By Contac t Referred To Contact Diagnoses AAA (abdominal aortic aneurysm) without rupture Procedures CL ARTERIAL FEMORAL RUNOFF Guanakito Inman MD Phone: tel:[phone] fax:[phone] Referral ID Status Reason Start Date Expiration Date Visits Re quested Visits Authorized [id number] Closed 08/21/2014 09/21/2015 1 1 Encounter Details Date Type Department Care Team (Latest Contact Info) Description 08/21/2014 Ancillary Orders [facility] Interventional Radiology OR [address] [place] [id number] Guanakito Inman MD [address] [place] [address] AAA (abdominal aortic aneurysm) without rupture (Primary [...] Exam was auto-finalized as part of the [employer] Single Instance conversion project. Procedure Note Bar Mcdermott Deborah - 11/28/2020 Order information only. Exam was auto-finalized as part of the [employer] Single Instance conversion project. Guanakito Inman MD FLUOROSCOPY ORDERABLES Fi nal Result documented in this encounter Visit Diagnoses Diagnosis AAA (abdominal aortic aneurysm) without rupture- Primary Abdominal aneurysm without mention of rupture documented in this encounter Care Teams Sub Prior Relationship Specialty Start Date End Date Ele Oropeza NP 2 [place] [address] PCP - General NURSE PRACTITIONER 01/22/19 documented as of this encounter
[2024-06-21 14:15] LABS: Basophils Absolute Auto 0.06 K/mm3 (0.00-0.10); Basophils Percent Auto 0.7 % (0.0-1.0); Eosinophils Absolute Auto 0.71 K/mm3 (0.02-0.50); Eosinophils Percent Auto 8.1 % (1.0-6.0); Hematocrit 41.2 % (37.0-46.0); Hemoglobin 13.6 g/dL (12.4-15.3); Immature Granulocyte Absolute 0.04 K/mm3 (0.00-0.00); Immature Granulocyte Percent A 0.5 % (0.0-0.0); Lymphocytes Absolute Auto 2.47 K/mm3 (1.10-4.50); Lymphocytes Percent Auto 28.3 % (18.0-42.0); Mean Corpuscular Hemoglobin 30.8 pg (27.0-31.0); Mean Corpuscular Volume 93.4 fL (78.0-102.0); Mean Platelet Volume 9.3 fl (8.7-11.0); Monocytes Absolute Auto 0.72 K/mm3 (0.10-0.90); Monocytes Percent Auto 8.2 % (2.0-11.0); Neutrophils Absolute Auto 4.74 K/mm3 (1.70-7.20); Neutrophils Percent Auto 54.2 % (50.0-70.0); Platelet Count Result 236 K/mm3 (150-420); Red Blood Count 4.41 M/mm3 (4.70-6.10); Red Cell Distribution Width 14.4 % (11.6-14.4); White Blood Count 8.7 K/mm3 (4.8-10.8)
[2024-06-21 16:42] LABS: Alanine Aminotransferase 16 U/L (6-50); Albumin Level 4.3 g/dL (3.5-5.1); Alkaline Phosphatase 116 U/L (38-126); Anion Gap 4 mmol/L (4-12); Aspartate Amino Transferase 32 U/L (17-59); Bilirubin,Total 0.9 mg/dL (0.2-1.3); Blood Urea Nitrogen 17 mg/dL (9-20); Calcium 9.8 mg/dL (8.4-10.2); Carbon Dioxide 28 mmol/L (22-30); Chloride 106 mmol/L (98-107); Estimated Glomerular Filt Rate > 60; Glucose 83 mg/dL (65-110); HDL Direct 41 mg/dL; Osmolality Calculated 286 mOsm/kg (285-295); Potassium 4.5 mmol/L (3.4-5.0); Sodium 138 mmol/L (137-145); Total Protein 7.5 g/dL (6.3-8.2)
[2024-06-21 16:52] LABS: Thyroid Stimulating Hormone Reflex 1.93 u/IU/mL (0.36-3.74)
[2024-06-21 17:35] LABS: Cholesterol 213 mg/dL (0-200); LDL Cholesterol Calculated 141 mg/dL (<130); Prostate Specific Antigen 1.1 ng/mL (< OR = 4.0); Triglycerides 153 mg/dL (0-150)
== END 2024-06-21 13:55 | disposition home or self-care (01) ==
LOC: CHSLAB 13:57
PROVIDERS: PCP Family Medicine; Visit Provider Family Medicine
DX: I10 Essential (primary) hypertension (principal); E03.9 Hypothyroidism, unspecified; R35.1 Nocturia; Z12.5 Encounter for screening for malignant neoplasm of prostate
CPT/HCPCS: 36415; 80053; 80061; 84153; 84443; 85025; G0103

== ENCOUNTER 2024-06-27 12:40 | Outpatient (CLI) | payer MEDICARE, SELFPAY ==
--- NOTE | ~2024-06-27 | CT_ITS ---
Clinical Indication: Abdominal aortic aneurysm, left iliac artery repair, smoking history, rib pain CT Scan of the Chest, Abdomen, and Pelvis with Contrast: Technique: Contiguous sections were acquired throughout the chest, abdomen, and pelvis after intraven ous administration of 100 cc of Omnipaque 350. Dose reduction technique was used on this scan by uti lizing automated exposure control and iterative reconstruction technique. The dose-length product (DL P) was 532.84 mGy-cm. Findings: There is right hilar lymphadenopathy, enlarged nodes, largest measuring 2.1 x 1.9 cm (axial image 63 for example). No axillary lymphadenopathy. No aortic aneurysm or dissection. No central pulmonary emb olus. There is no evidence of pleural or pericardial effusion. There is advanced emphysema. There is peripheral consolidation the posterior right lower lobe, which could reflect atelectasis versus possibly pneumonia. The liver, spleen, pancreas, gallbladder, and kidneys are within normal limits. There is enlargement of a nodular the bilateral adrenal glands, which could reflect adrenal hyperplasia versus nodules. In frarenal abdominal aortic stent graft is present, extending into bilateral common iliac arteries.. N o lymphadenopathy. No bowel obstruction or bowel wall thickening. There is no evidence to suggest acute appendicitis. Urinary bladder is unremarkable. No pelvic mass seen. No ascites. T12 compression fracture present. T 5 vertebroplasty noted. Impression: Right hilar lymphadenopathy. Correlate for neoplastic/metastatic disease versus reactive lymph nodes. Consider bronchoscopic tissue sampling as indicated. Peripheral consolidation posterior right lower lobe, most suggestive of pneumonia or atelectasis. Advanced emphysema. Infrarenal abdominal aortic stent graft present, as detailed above. Chronic T12 compression fracture. Reviewed, dictated and finalized at [facility]. Impression: Right hilar lymphadenopathy. Correlate for neoplastic/metastatic disease versus reactive lymph nodes. Consider bronchoscopic tissue sampling as indicated. Peripheral consolidation posterior right lower lobe, most suggestive of pneumon ia or atelectasis. Advanced emphysema. Infrarenal abdominal aortic stent graft present, as detailed above. Chronic T12 compression fracture.
--- OUTSIDE RECORDS SUMMARY | 2024-06-27 12:42 | XMS_ITS | Continuity of Care Document ---
Author Organization [facility] Eye [facility] Address [address] [place] [address] [address] [place] [address] Phone Care Team Providers Care Musical String Maker Name Role Phone [facility] Unavailable Unavail able Jo Ceron Unavailable Unavailable Procedures Procedure Date Vision Svcs Frames Purchases BF Plastic Sphcyl [place] To +/-4d .12-2d Tax - Medical Eye Exam, New Patient Refraction Advance Directives Directive Yes / No Effective Date File Name No Information Encounters Encounter Description Practice Location Reason(s) For Visit Diagnoses Date Provider Providers Copied on Encounter [facility], [address] [place] [address] [facility], [place], [place], [id number], [place] tel:[phone] [facility] No Information Apr-0 4200 8 [facility] . [address] [facility], [facility] [address], [place], [id number], [place]. tel:[phone] Referring Provider: Mary Beth Lopez, [address] [facility] [address], [place], [address]. tel:[phone] g Provider: Jo Ceron, [address] [facility], [place], [address]. tel:[phone] [facility], [address] [place] [address] [address], [place], [place], [id number], [place] tel:[phone] [facility] No Information Apr-0 4200 8 Nilda Clinton. [address] [facility] , [address], [place], [address], [place]. tel:[phone] Family History Family Member Type Diagnosis Age [...]
--- OUTSIDE RECORDS SUMMARY | 2024-06-27 12:42 | XMS_ITS | Clinical Summary ---
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 [...] Comments Blood Pressure 112/55 02/19/2020 12:01 PM WOOD HEEL BACK LINER Pulse 85 02/19/2020 12:01 PM WOOD HEEL BACK LINER Temperature 36.4 C (97.5 F) 04/17/2017 7:13 AM WOOD HEEL BACK LINER Respiratory Rate 15 04/17/2017 7:13 AM WOOD HEEL BACK LINER Oxygen Saturation 97% 02/19/2020 12:01 PM WOOD HEEL BACK LINER Inhaled Oxygen Concentration - - Weight 73 kg (161 lb) 02/19/2020 12:01 PM WOOD HEEL BACK LINER Height 167.6 cm (5' 6 ) 02/19/2020 12:01 PM WOOD HEEL BACK LINER Body Mass Index 25.99 02/19/2020 12:01 PM WOOD HEEL BACK LINER Plan of Treatment Health Maintenance Due Date [...] series) 2025 Medical Devices Implanted Type Area Lockstitch Pocket Setter Device Identifier Shelf Expiration Date Model / Serial / Lot Stent Xcldr C3 Trnk-Ipsilat Leg [id number] - [id number] Implanted:Qty: 1 on 08/21/2014 by Guanakito Inman MD at [facility] Stent N/A: Abdomen [employer] 08/13/2016 [id number] / [id number] / Stent Xcldr Contralat Leg [id number] - [id number] Implanted:Qty: 1 on 08/21/2014 by Guanakito Inman MD at [facility] Stent N/A: Abdomen [employer] 03/16/2017 [id number] / [id number] / Description:left common femo ral Stent Xcldr Contralat Leg [id number] - [id number] Implanted:Qty: 1 on 04/15/2017 by Marcel Ling MD at [facility] Stent Left: Aorta [employer] 04/17/2018 [id number] / [id number] / NA Stent Xcldr Iliac Legal Biller [id number] - [id number] Implanted:Qty: 1 on 04/15/2017 by Marcel Ling MD at [facility] Stent Left: Iliac Artery [employer] 09/11/2018 [id number] / [id number] / NA Stent Abslt Pv [id number] - Sna Implanted:Qty: 1 on 04/15/2017 by Marcel Ling MD at [facility] Stent Left: Iliac Artery MCCABE- VASC DEVICE 01/14/2020 [id number] / NA / [id number] Description:External iliac a rtery Stent Ovation Ix Iliac Limb [id number] - Sn/A Implanted:Qty: 2 on 04/16/2017 by Marcel Ling MD at [facility] Stent Right: Aorta TRIVASCULAR, INC. 01/28/2020 [id number] 100-J / N/A / [id number] Insurance [place] [id number] [facility] DUAL COMPLETE Advance Directives For more information, please contact: [phone] * Full Code (Latest Code Status on File) Date Activated Date Inactivated Comments 04/16/2017 4:30 PM 04/17/2017 2:21 PM * Full Code Date Activated Date Inactivated Comments 08/21/2014 4:44 PM 08/22/2014 2:20 PM Care Teams Bakery Team Leader Relationship Specialty Start Date End Date Ele Oropeza NP 2 [place] [address] PCP - General NURSE PRACTITIONER 01/22/19
--- OUTSIDE RECORDS SUMMARY | 2024-06-27 12:42 | XMS_ITS | Clinical Summary ---
Author Organization 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 [...] on file Legal Sex Male 1:27 AM GILL BOX OPERATOR Gender Identity Not on file Sexual Orientation Not on file Last Filed Vital Signs Vital Sign Reading Time Taken Comments Blood Pressure 118/60 03/02/2023 10:36 AM GILL BOX OPERATOR Pulse 65 03/02/2023 10:36 AM GILL BOX OPERATOR Temperature 36.4 C (97.5 F) 04/17/2017 7:13 AM GILL BOX OPERATOR Respiratory Rate 15 04/17/2017 7:13 AM GILL BOX OPERATOR Oxygen Saturation 96% 03/02/2023 10:36 AM GILL BOX OPERATOR Inhaled Oxygen Concentration - - Weight 77.6 kg (171 lb) 03/02/2023 10:36 AM GILL BOX OPERATOR Height 165.1 cm (5' 5 ) 03/02/2023 10:36 AM GILL BOX OPERATOR Body Mass Index 28.46 03/02/2023 10:36 AM GILL BOX OPERATOR Plan of Treatment Health Maintenance Due Date [...] 07/29/2017, 02/15/2012 Medical Devices Implanted Type Area Cryptanalyst Device Identifier Shelf Expiration Date Model / Serial / Lot Stent Xcldr C3 Trnk-Ipsilat Leg [id number] - [id number] Implanted:Qty: 1 on 08/21/2014 by Guanakito Inman MD Stent N/A: Abdomen [employer] 08/13/2016 [id number] / [id number] / Stent Xcldr Contralat Leg [id number] - [id number] Implanted:Qty: 1 on 08/21/2014 by Guanakito Inman MD Stent N/A: Abdomen [employer] 03/16/2017 [id number] / [id number] / Description:left common femo ral Stent Abslt Pv [id number] - Sna Implanted:Qty: 1 on 04/15/2017 by Marcel Ling MD Stent Left: Iliac Artery MCCABE- VASC DEVICE 01/14/2020 [id number] 0 / NA / [id number] Description:External iliac a rtery Stent Xcldr Contralat Leg [id number] - [id number] Implanted:Qty: 1 on 04/15/2017 by Marcel Ling MD Stent Left: Aorta [employer] 04/17/2018 [id number] / [id number] / NA Stent Xcldr Iliac Judicial Law Clerk [id number] - [id number] Implanted:Qty: 1 on 04/15/2017 by Marcel Ling MD Stent Left: Iliac Artery [employer] 09/11/2018 [id number] / [id number] / NA Stent Ovation Ix Iliac Limb [id number] - Sn/A Implanted:Qty: 2 on 04/16/2017 by Marcel Ling MD Stent Right: Aorta TRIVASCULAR, INC. 01/28/2020 [id number] 100-J / N/A / [id number] Insurance [place] [id number] [facility] [id number] Care Teams Ship Rigger Apprentice Relationship Specialty Start Date End Date Ele Oropeza NP [address] [place] [address] PCP - General 05/23/20
--- OUTSIDE RECORDS SUMMARY | 2024-06-27 12:42 | XMS_ITS | Encounter Summary ---
Author Organization [facility] Address [address] [place] [address] Care Team Providers Care Slot Floorperson Name Role Phone SandipDonnellEle L TOOL MACHINIST Primary Care Provider [phone] Reason for Referral * Outpatient Services (Routine) - Closed Specialty Diagnoses / Procedures Referred By Contac t Referred To Contact Diagnoses AAA (abdominal aortic aneurysm) without rupture Procedures CL ARTERIAL FEMORAL RUNOFF Guanakito Inman MD Phone: tel:[phone] fax:[phone] Referral ID Status Reason Start Date Expiration Date Visits Re quested Visits Authorized [id number] Closed 08/21/2014 09/21/2015 1 1 Encounter Details Date Type Department Care Team (Latest Contact Info) Description 08/21/2014 Ancillary Orders [facility] Interventional Radiology OR [address] [place] [address] Guanakito Inman MD [address] [place] [address] AAA (abdominal aortic aneurysm) without rupture (Primary [...] Exam was auto-finalized as part of the [employer] Single Instance conversion project. Procedure Note Bar Mcdermott Deborah - 11/28/2020 Order information only. Exam was auto-finalized as part of the [employer] Single Instance conversion project. Guanakito Inmna MD FLUOROSCOPY ORDERABLES Fi nal Result documented in this encounter Visit Diagnoses Diagnosis AAA (abdominal aortic aneurysm) without rupture- Primary Abdominal aneurysm without mention of rupture documented in this encounter Care Teams Slot Floorperson Relationship Specialty Start Date End Date Ele Oropeza NP 2 [place] [address] PCP - General NURSE PRACTITIONER 01/22/19 documented as of this encounter
== END 2024-06-27 12:41 | disposition home or self-care (01) ==
PROVIDERS: PCP Family Medicine; Visit Provider Nurse Practitioner Family
DX: I71.40 Abdominal aortic aneurysm, without rupture, unspecified (principal); Z72.0 Tobacco use; R59.0 Localized enlarged lymph nodes; R91.8 Other nonspecific abnormal finding of lung field; J43.9 Emphysema, unspecified; M48.54XA Collapsed vertebra, not elsewhere classified, thoracic region, initial encounter for fracture
CPT/HCPCS: 71275; 74174; Q9967

== ENCOUNTER 2024-07-31 18:08 | Observation (INO) | payer MEDICARE, SELFPAY ==
--- NOTE | ~2024-07-31 | CT_ITS ---
CLINICAL INDICATION: Nausea and vomiting COMPARISON: 06/27/2024. TECHNIQUE: Multiple contiguous axial images of the abdomen and pelvis were performed without the admi nistration of intravenous contrast The dose-length product (DLP) was 537.74 mGy-cm. Automated exposure control and iterative reconstruction technique were employed. FINDINGS/OBSERVATIONS: Visualized lower thorax: Interstitial thickening is detected bilaterally. Subpleural honeycombing is also noted. The remainder of the bilateral lung bases are clear. The heart is of normal size, without pericardial effusion. Small hiatal hernia is present. Liver: The liver demonstrates homogeneous attenuation and is not enlarged. Gallbladder and biliary system: The gallbladder is only minimally distended, and otherwise unremarkable. Pancreas: Limited evaluation of the pancreas secondary to the lack of intravenous contrast. Spleen: The spleen demonstrates homogeneous attenuation and is not enlarged. Kidneys: Scattered 2 and 3mm stones within the bilateral kidneys, without hydronephrosis. Adrenal glands: Unremarkable. Gastrointestinal tract: Multiple loops of fluid-filled bowel are identified, without dilatation or surrounding inflammatory c hange. Appendix: The air-filled appendix is of normal caliber (axial series, images 85 through 90) Vasculature: Aortobifemoral endograft is identified, extending into the left common femoral artery. Lymph nodes: Limited evaluation without intravenous contrast. Pelvic structures: The bladder is distended, and otherwise unremarkable. The prostate gland is not enlarged, and contains multiple calcified stones. Body wall and musculoskeletal: Fat-containing right inguinal hernia. Small fat-containing umbilical hernia. Age-appropriate degenerative disease within the lower thoracic and lumbosacral spine. Redemonstration of compression fracture at the level of T12. IMPRESSION: Multiple loops of fluid-filled bowel without dilatation or surrounding inflammatory change, consisten t with patient's history. No additional acute findings within the lower chest, abdomen or pelvis. Reviewed, dictated and finalized at location A. IMPRESSION: Multiple loops of fluid-filled bowel without dilatation or surrounding inflamma tory change, consistent with patient's history. No additional acute findings within the lower chest, abdomen or pelvis.
[2024-07-31 18:10] VITALS: BP 135/79; RESP 18; TEMP 36.4; O2SAT 96
--- OUTSIDE RECORDS SUMMARY | 2024-07-31 18:11 | XMS_ITS | Encounter Summary ---
Author Organization [facility] Address [address] [place] [address] Care Team Providers Care Bleach Chlorinator Name Role Phone SandipDonnellEle L UX ARCHITECT Primary Care Provider [phone] Reason for Referral * Outpatient Services (Routine) - Closed Specialty Diagnoses / Procedures Referred By Contac t Referred To Contact Diagnoses AAA (abdominal aortic aneurysm) without rupture Procedures CL ARTERIAL FEMORAL RUNOFF Guanakito Inman MD Phone: tel:[phone] fax:[phone] Referral ID Status Reason Start Date Expiration Date Visits Re quested Visits Authorized [id number] Closed 08/21/2014 09/21/2015 1 1 Encounter Details Date Type Department Care Team (Latest Contact Info) Description 08/21/2014 Ancillary Orders [facility] Interventional Radiology OR [address] [place] [phone] Guanakito Inman MD [address] [place] [address] AAA (abdominal aortic aneurysm) without rupture (Primary [...] Exam was auto-finalized as part of the [employer] Single Instance conversion project. Procedure Note Bar Mcdermott Deborah - 11/28/2020 Order information only. Exam was auto-finalized as part of the [employer] Single Instance conversion project. Guanakito Inman MD FLUOROSCOPY ORDERABLES Fi nal Result documented in this encounter Visit Diagnoses Diagnosis AAA (abdominal aortic aneurysm) without rupture- Primary Abdominal aneurysm without mention of rupture documented in this encounter Care Teams Bleach Chlorinator Relationship Specialty Start Date End Date Ele Oropeza NP [address] [place] [address] PCP - General NURSE PRACTITIONER 01/22/19 documented as of this encounter
--- OUTSIDE RECORDS SUMMARY | 2024-07-31 18:11 | XMS_ITS | Clinical Summary ---
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 [...] Comments Blood Pressure 112/55 02/19/2020 12:01 PM ENTRY LEVEL ACCOUNT MANAGER Pulse 85 02/19/2020 12:01 PM ENTRY LEVEL ACCOUNT MANAGER Temperature 36.4 C (97.5 F) 04/17/2017 7:13 AM ENTRY LEVEL ACCOUNT MANAGER Respiratory Rate 15 04/17/2017 7:13 AM ENTRY LEVEL ACCOUNT MANAGER Oxygen Saturation 97% 02/19/2020 12:01 PM ENTRY LEVEL ACCOUNT MANAGER Inhaled Oxygen Concentration - - Weight 73 kg (161 lb) 02/19/2020 12:01 PM ENTRY LEVEL ACCOUNT MANAGER Height 167.6 cm (5' 6) 02/19/2020 12:01 PM ENTRY LEVEL ACCOUNT MANAGER Body Mass Index 25.99 02/19/2020 12:01 PM ENTRY LEVEL ACCOUNT MANAGER Plan of Treatment Health Maintenance Due Date [...] series) 2025 Medical Devices Implanted Type Area Nutrition Educator Device Identifier Shelf Expiration Date Model / Serial / Lot Stent Xcldr C3 Trnk-Ipsilat Leg [id number] - [id number] Implanted:Qty: 1 on 08/21/2014 by Guanakito Inman MD at [facility] Stent N/A: Abdomen [employer] 08/13/2016 [id number] / [id number] / Stent Xcldr Contralat Leg [id number] - [id number] Implanted:Qty: 1 on 08/21/2014 by Guanakito Inman MD at [facility] Stent N/A: Abdomen [employer] 03/16/2017 [id number] / [id number] / Description:left common femo ral Stent Xcldr Contralat Leg [id number] - [id number] Implanted:Qty: 1 on 04/15/2017 by Marcel Ling MD at [facility] Stent Left: Aorta [employer] 04/17/2018 [id number] / [id number] / NA Stent Xcldr Iliac Dairy Technologist [id number] - [id number] Implanted:Qty: 1 on 04/15/2017 by Marcel Ling MD at [facility] Stent Left: Iliac Artery [employer] 09/11/2018 [id number] / [id number] / NA Stent Abslt Pv [id number] - Sna Implanted:Qty: 1 on 04/15/2017 by Marcel Ling MD at [facility] Stent Left: Iliac Artery MCCABE- VASC DEVICE 01/14/2020 [id number] / [id number] / [id number] Description:External iliac a rtery Stent Ovation Ix Iliac Limb [id number] - Sn/A Implanted:Qty: 2 on 04/16/2017 by Marcel Ling MD at [facility] Stent Right: Aorta TRIVASCULAR, INC. 01/28/2020 [id number] 100-J / N/A / [id number] Insurance [place] [id number] [facility] DUAL COMPLETE Advance Directives For more information, please contact: [phone] * Full Code (Latest Code Status on File) Date Activated Date Inactivated Comments 04/16/2017 4:30 PM 04/17/2017 2:21 PM * Full Code Date Activated Date Inactivated Comments 08/21/2014 4:44 PM 08/22/2014 2:20 PM Care Teams 911 Emergency Dispatcher Relationship Specialty Start Date End Date Ele Oropeza NP [address] [place] [address] PCP - General NURSE PRACTITIONER 01/22/19
--- OUTSIDE RECORDS SUMMARY | 2024-07-31 18:11 | XMS_ITS | Continuity of Care Document ---
Author Organization [facility] Address [address] [place] [address] [address] [place] [address] Phone Care Team Providers Care Batch Unloader Name Role Phone [facility] Unavailable Unavail able Jo Ceron Unavailable Unavailable Procedures Procedure Date Vision Svcs Frames Purchases BF Plastic Sphcyl [place] To +/-4d .12-2d Tax - Medical Eye Exam, New Patient Refraction Advance Directives Directive Yes / No Effective Date File Name No Information Encounters Encounter Description Practice Location Reason(s) For Visit Diagnoses Date Provider Providers Copied on Encounter [facility], [address] [place] [address] [facility], [place], [place], [id number], [place] tel:[phone] [facility] No Information Apr-0 4200 8 Optical [facility] . [address] [facility] [address], [place], [address], [place]. tel:[phone] Referring Provider: Mary Beth Lopez, [address] [facility] [address], [place], [address]. tel:[phone] g Provider: Jo Ceron, [address] [facility], [place], [address]. tel:[phone] [facility], [address] [place] [address] [address], [place], [place], [id number], [place] tel:[phone] [facility] No Information May-0 4200 8 Nilda Clinton. [address] [facility] , [address], [place], [address], [place]. tel:[phone] Family History Family Member Type Diagnosis Age At Onset No Information Payers Payer name Insurance type Covered libertarian ID Authoriza tion(s) No Information Social History [...]
--- OUTSIDE RECORDS SUMMARY | 2024-07-31 18:11 | XMS_ITS | Clinical Summary ---
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 04/15/2017 05/10/2017 Encounters Date Type Department Care Team Description 07/03/2024 External Device Data STL ABSTRACTION Provider, Abstract [...] on file Legal Sex Male 1:27 AM INTERNAL REVENUE AGENT Gender Identity Not on file Sexual Orientation Not on file Last Filed Vital Signs Vital Sign Reading Time Taken Comments Blood Pressure 118/60 03/02/2023 10:36 AM INTERNAL REVENUE AGENT Pulse 65 03/02/2023 10:36 AM INTERNAL REVENUE AGENT Temperature 36.4 C (97.5 F) 04/17/2017 7:13 AM INTERNAL REVENUE AGENT Respiratory Rate 15 04/17/2017 7:13 AM INTERNAL REVENUE AGENT Oxygen Saturation 96% 03/02/2023 10:36 AM INTERNAL REVENUE AGENT Inhaled Oxygen Concentration - - Weight 77.6 kg (171 lb) 03/02/2023 10:36 AM INTERNAL REVENUE AGENT Height 165.1 cm (5' 5) 03/02/2023 10:36 AM INTERNAL REVENUE AGENT Body Mass Index 28.46 03/02/2023 10:36 AM INTERNAL REVENUE AGENT Plan of Treatment Health Maintenance Due Date [...] 07/29/2017, 02/15/2012 Medical Devices Implanted Type Area Inspector Packer Glass Container Device Identifier Shelf Expiration Date Model / Serial / Lot Stent Xcldr C3 Trnk-Ipsilat Leg [id number] - [id number] Implanted:Qty: 1 on 08/21/2014 by Guanakito Inman MD Stent N/A: Abdomen [employer] 08/13/2016 [id number] / [id number] / Stent Xcldr Contralat Leg [id number] - [id number] Implanted:Qty: 1 on 08/21/2014 by Guanakito Inman MD Stent N/A: Abdomen [employer] 03/16/2017 [id number] / [id number] / Description:left common femo ral Stent Abslt Pv [id number] - Sna Implanted:Qty: 1 on 04/15/2017 by Marcel Ling MD Stent Left: Iliac Artery MCCABE- VASC DEVICE 01/14/2020 [id number] / [id number] / [id number] Description:External iliac a rtery Stent Xcldr Contralat Leg [id number] - [id number] Implanted:Qty: 1 on 04/15/2017 by Marcel Ling MD Stent Left: Aorta [employer] 04/17/2018 [id number] / [id number] / NA Stent Xcldr Iliac [facility] Liaison [id number] - [id number] Implanted:Qty: 1 on 04/15/2017 by Marcel Ling MD Stent Left: Iliac Artery [employer] 09/11/2018 [id number] / [id number] / NA Stent Ovation Ix Iliac Limb [id number] - Sn/A Implanted:Qty: 2 on 04/16/2017 by Marcel Ling MD Stent Right: Aorta [employer] 01/28/2020 [id number] 100-J / N/A / [id number] [place] [address] [facility] [id number] Care Teams Dive Superintendent Relationship Specialty Start Date End Date Ele Oropeza NP [address] [place] [address] PCP - General 05/23/20
--- NOTE | 2024-07-31 18:26 | ED_ITS ---
HPI - General Adult General Chief complaint: Nausea/Vomiting/Diarrhea Stated complaint: vomiting Time Seen by Provider: 07/31/24 18:25 Source: patient Mode of arrival: ambulatory Limitations: no limitations History of Present Illness HPI narrative: 73-year-old white male presents emergency room with his family complaining of nausea vomiting since around 01 28 today. Denies any abdominal pain. Said he vomited up a little bit of a blood. He felt fine when he woke up and went to his job at [employer] this morning. Denies any history of ulcers he is on Plavix he said he had some aching all over head legs arms stomach but now currently has no pain. He started on some bupropion SR for smoking sensation June 29. Feels a little wobbly on his feet but denies any dizziness or lightheadedness or abdominal pain now he is feels tired and fatigued denies any other bleeding or bruising rash or itching or cough. He has COPD and sometimes short of breath. Denies any problems voiding. He had a normal bowel movement this morning. Denies any other complaints. Related Data Home Medications ?Medication ?Instructions ?Recorded ?Confirmed ?Last Taken ?Type albuterol sulfate 90 mcg/actuation 2 inh inhalation Q4-6H PRN 06/21/24 08/01/24 Unknown History breath activated powder inhaler shortness of breath or wheezing amlodipine 5 mg tablet 5 mg PO DAILY 06/21/24 08/01/24 08/01/24 History atorvastatin 40 mg tablet (Lipitor) 40 mg PO QHS 06/21/24 08/01/24 08/01/24 History clopidogrel 75 mg tablet 75 mg PO DAILY 06/21/24 08/01/24 08/01/24 History losartan 100 mg tablet 100 mg PO DAILY 06/21/24 08/01/24 08/01/24 History Allergies Allergy/AdvReac Type Severity Reaction Status Date / Time No Known Allergies Allergy Unknown Verified 07/31/24 18:10 Review of Systems 2 Review of Systems: All systems reviewed & are unremarkable except as noted in HPI and below PMFSH Family History Family History Sibling Cancer Social History Social History Smoking packs per day: 1 Smoking cigarettes per day: 20.0 Years smoked: 60 Smoking pack-years: 60.00 Smoking status: Former smoker Tobacco type: cigarettes Second hand tobacco smoke exposure: No Smoking end date: 06/29/24 Alcohol intake: never Substance use: never Substance use type: does not use Do You Feel Safe in your Home?: Yes Lack of Transportation: No Lack of Food: Never True Current Housing: I Have Housing Concerned About Future Housing: No Difficulty Paying Gas/Electric Bills: No Difficulty Paying for Meds: No Currently Unemployed: No Education: High School Diploma/GED Difficulty w/ Childcare or Family Care: No Living arrangements: with family Gender identity (if verbalized by the patient): Male Spiritual care concerns: No Comments History of COPD chronic back pain hypertension hyperlipidemia no history of heart disease. Exam 2 Narrative: ?White male patient with no apparent distress.? Head normocephalic, atraumatic.? Eyes conjunctiva pink sclera nonicteric.? Extraocular movements are intact.? Ears externally normal.? Oropharynx is clear with dry mucous membranes without exudates.? Neck is supple nontender no lymphadenopathy.? Back is nontender.? Lungs are clear.? Heart is regular rate and rhythm without murmurs gallops or rubs.? Chest wall nontender. Abdomen is soft and nontender no hepatosplenomegaly or masses no CVA tenderness no abdominal bruits.? Extremities no cyanosis clubbing or edema.? Skin is warm and dry without rashes or lesions.? Neurological patient is alert and oriented x 4. Motor and sensory grossly intact.? Gait is normal. Course Vital Signs Vital signs: Vital Signs Temperature 36.4 C 07/31/24 18:10 Respiratory Rate 18 07/31/24 18:10 Blood Pressure 135/79 07/31/24 18:10 Pulse Oximetry 96 07/31/24 18:10 Oxygen Delivery Room Air 07/31/24 18:10 Temperature 36.4 C L 08/01/24 00:00 Pulse Rate 78 08/01/24 00:00 Respiratory Rate 18 08/01/24 00:00 Blood Pressure 136/64 08/01/24 00:00 Pulse Oximetry 96 08/01/24 00:00 Oxygen Delivery Room Air 08/01/24 00:00 Medical Decision Making MDM Narrative Medical decision making narrative: Patient was placed in Room #6 With his and son History and physical was performed. CT abdomen pelvis without contrast per radiologist showed:Multiple loops of fluid-filled bowel without dilatation or surrounding inflammatory change, consistent with patient's history. No additional acute findings within the lower chest, abdomen or pelvis. CBC coags was unremarkable potassium was 5.1, BUN was 36 creatinine was 1.88 and GFR was 35 on June 21, 2024 GFR was 60 creatinine was 0.78 and BUN was 17. Calcium was 10.6 the rest of chemistries were normal magnesium was normal lipase was normal alcohol was negative alk phos was 151. gastroccult was negative Patient state he had diarrheal stool Independent Historian: External Source Review: Differential Dx includes but not limited to: upper GI bleed electrolyte imbalance dehydration gastroenteritis gastritis peptic ulcer disease Medications were Reviewed: meds review Independently Interpreted by me: labs independently interpreted by me. Meds, treatment, ED course: normal saline 1 L Protonix 40, Zofran 4 Social Situation Impacting Patients Care: Shared decision Making: Evaluation discussed with the patient and his family all questions were asked and answered they agreed with the plan. DISCHARGE DIAGNOSIS: nausea vomiting dehydration acute kidney injury DISPOSITION: admit to observation Med surge CONDITION AT DISCHARGE: stable Vital Signs Vital Signs: Vital Signs Temperature 36.4 C 07/31/24 18:10 Respiratory Rate 18 07/31/24 18:10 Blood Pressure 135/79 07/31/24 18:10 Pulse Oximetry 96 07/31/24 18:10 Oxygen Delivery Room Air 07/31/24 18:10 Temperature 36.4 C L 08/01/24 00:00 Pulse Rate 78 08/01/24 00:00 Respiratory Rate 18 08/01/24 00:00 Blood Pressure 136/64 08/01/24 00:00 Pulse Oximetry 96 08/01/24 00:00 Oxygen Delivery Room Air 08/01/24 00:00 Lab Data 07/31/24 18:55 07/31/24 18:55 Labs: Lab Results 07/31/24 07/31/24 Range/Units 18:55 23:01 WBC 10.6 (4.8-10.8) K/mm3 RBC 4.00 L (4.70-6.10) M/mm3 Hgb 12.4 (12.4-15.3) g/dL Hct 36.8 L (37.0-46.0) % MCV 92.0 (78.0-102.0) fL MCH 31.0 (27.0-31.0) pg MCHC 33.7 (32-36) g/dL RDW 13.2 (11.6-14.4) % Plt Count 259 (150-420) K/mm3 MPV 9.0 (8.7-11.0) fl PT 11.4 (9.50-12.1) Seconds INR 1.0 APTT 28.4 (23.9-30.70) Sec Sodium 137 (137-145) mmol/L Potassium 5.1 H (3.4-5.0) mmol/L Chloride 105 (98-107) mmol/L Carbon Dioxide 24 (22-30) mmol/L Anion Gap 8 (4-12) mmol/L BUN 36 H D (9-20) mg/dL Creatinine 1.88 H (0.7-1.3) mg/dL Estim Creat Clear Calc 28 ml/min Estimated GFR 35 L (59 - ) Glucose 100 (65-110) mg/dL Calculated Osmolality 292 (285-295) mOsm/kg Lactic Acid 1.1 (0.4-2.0) mmol/L Calcium 10.6 H (8.4-10.2) mg/dL Magnesium 2.1 (1.6-2.3) mg/dL Total Bilirubin 1.0 (0.2-1.3) mg/dL AST 39 (17-59) U/L ALT 23 (6-50) U/L Alkaline Phosphatase 151 H (38-126) U/L Total Protein 8.2 (6.3-8.2) g/dL Albumin 4.2 (3.5-5.1) g/dL Lipase 51 (23-300) U/L Gastric Fluid pH 3 (1-8) Gastric Occult Blood Negative Ethyl Alcohol < 10 (<10) mg/dL Discharge Plan Discharge Clinical Impression: Acute kidney injury, Acute dehydration Nausea and vomiting Qualifiers: Vomiting type: unspecified Qualified Code(s): R11.2 - Nausea with vomiting, unspecified Patient Disposition: Still a Patient Condition: Stable
--- OUTSIDE RECORDS SUMMARY | 2024-07-31 18:51 | XMS_ITS | Clinical Summary ---
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 [...] on file Legal Sex Male 1:27 AM MANAGER WILLOW Gender Identity Not on file Sexual Orientation Not on file Last Filed Vital Signs Vital Sign Reading Time Taken Comments Blood Pressure 118/60 03/02/2023 10:36 AM MANAGER WILLOW Pulse 65 03/02/2023 10:36 AM MANAGER WILLOW Temperature 36.4 C (97.5 F) 04/17/2017 7:13 AM MANAGER WILLOW Respiratory Rate 15 04/17/2017 7:13 AM MANAGER WILLOW Oxygen Saturation 96% 03/02/2023 10:36 AM MANAGER WILLOW Inhaled Oxygen Concentration - - Weight 77.6 kg (171 lb) 03/02/2023 10:36 AM MANAGER WILLOW Height 165.1 cm (5' 5) 03/02/2023 10:36 AM MANAGER WILLOW Body Mass Index 28.46 03/02/2023 10:36 AM MANAGER WILLOW Plan of Treatment Health Maintenance Due Date [...] 07/29/2017, 02/15/2012 Medical Devices Implanted Type Area Stage Setting Painter Apprentice Device Identifier Shelf Expiration Date Model / Serial / Lot Stent Xcldr C3 Trnk-Ipsilat Leg [id number] - [id number] Implanted:Qty: 1 on 08/21/2014 by Guanakito Inman MD Stent N/A: Abdomen [employer] 08/13/2016 [id number] / [id number] / Stent Xcldr Contralat Leg [id number] - [id number] Implanted:Qty: 1 on 08/21/2014 by Guanakito Inman MD Stent N/A: Abdomen [employer] 03/16/2017 [id number] / [id number] / Description:left common femo ral Stent Abslt Pv [id number] - Sna Implanted:Qty: 1 on 04/15/2017 by Marcel Ling MD Stent Left: Iliac Artery MCCABE- VASC DEVICE 01/14/2020 [id number] / [id number] / [id number] Description:External iliac a rtery Stent Xcldr Contralat Leg [id number] - [id number] Implanted:Qty: 1 on 04/15/2017 by Marcel Ling MD Stent Left: Aorta [employer] 04/17/2018 [id number] / [id number] / NA Stent Xcldr Iliac Counter Checker [id number] - [id number] Implanted:Qty: 1 on 04/15/2017 by Marcel Ling MD Stent Left: Iliac Artery [employer] 09/11/2018 [id number] / [id number] / NA Stent Ovation Ix Iliac Limb [id number] - Sn/A Implanted:Qty: 2 on 04/16/2017 by Marcel Ling MD Stent Right: Aorta [employer] 01/28/2020 [id number] 100-J / N/A / [id number] [place] [address] [facility] [id number] Care Teams Furniture Designer Relationship Specialty Start Date End Date Ele Oropeza NP [address] [place] [address] PCP - General 05/23/20
--- OUTSIDE RECORDS SUMMARY | 2024-07-31 18:51 | XMS_ITS | Clinical Summary ---
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 with rest pain [...] Comments Blood Pressure 112/55 02/19/2020 12:01 PM MODELER Pulse 85 02/19/2020 12:01 PM MODELER Temperature 36.4 C (97.5 F) 04/17/2017 7:13 AM MODELER Respiratory Rate 15 04/17/2017 7:13 AM MODELER Oxygen Saturation 97% 02/19/2020 12:01 PM MODELER Inhaled Oxygen Concentration - - Weight 73 kg (161 lb) 02/19/2020 12:01 PM MODELER Height 167.6 cm (5' 6) 02/19/2020 12:01 PM MODELER Body Mass Index 25.99 02/19/2020 12:01 PM MODELER Plan of Treatment Health Maintenance Due Date [...] series) 2025 Medical Devices Implanted Type Area [employer] Team Member Device Identifier Shelf Expiration Date Model / Serial / Lot Stent Xcldr C3 Trnk-Ipsilat Leg [id number] - [id number] Implanted:Qty: 1 on 08/21/2014 by Guanakito Inman MD at [facility] Stent N/A: Abdomen [employer] 08/13/2016 [id number] / [id number] / Stent Xcldr Contralat Leg [id number] - [id number] Implanted:Qty: 1 on 08/21/2014 by Guanakito Inman MD at [facility] Stent N/A: Abdomen [employer] 03/16/2017 [id number] / [id number] / Description:left common femo ral Stent Xcldr Contralat Leg [id number] - [id number] Implanted:Qty: 1 on 04/15/2017 by Marcel Ling MD at [facility] Stent Left: Aorta [employer] 04/17/2018 [id number] / [id number] / NA Stent Xcldr Iliac Finger Grip Machine Operator [id number] - [id number] Implanted:Qty: 1 on 04/15/2017 by Marcel Ling MD at [facility] Stent Left: Iliac Artery [employer] 09/11/2018 [id number] / [id number] / NA Stent Abslt Pv [id number] - Sna Implanted:Qty: 1 on 04/15/2017 by Marcel Ling MD at [facility] Stent Left: Iliac Artery MCCABE- VASC DEVICE 01/14/2020 [id number] / [id number] / [id number] Description:External iliac a rtery Stent Ovation Ix Iliac Limb [id number] - Sn/A Implanted:Qty: 2 on 04/16/2017 by Marcel Ling MD at [facility] Stent Right: Aorta TRIVASCULAR, INC. 01/28/2020 [id number] 100-J / N/A / [id number] Insurance [address] [address] [facility] [place] [address] Advance Directives For more information, please contact: [phone] * Full Code (Latest Code Status on File) Date Activated Date Inactivated Comments 04/16/2017 4:30 PM 04/17/2017 2:21 PM * Full Code Date Activated Date Inactivated Comments 08/21/2014 4:44 PM 08/22/2014 2:20 PM Care Teams Keel Press Operator Relationship Specialty Start Date End Date Ele Oropeza NP [address] [place] [address] PCP - General NURSE PRACTITIONER 01/22/19
--- OUTSIDE RECORDS SUMMARY | 2024-07-31 18:51 | XMS_ITS | Encounter Summary ---
Author Organization [facility] Address [address] [place] [address] Care Team Providers Care Hat Presser Name Role Phone SandipDonnellEle L HEEL TRIMMER Primary Care Provider [phone] Reason for Referral * Outpatient Services (Routine) - Closed Specialty Diagnoses / Procedures Referred By Contac t Referred To Contact Diagnoses AAA (abdominal aortic aneurysm) without rupture Procedures CL ARTERIAL FEMORAL RUNOFF Guanakito Inman MD Phone: tel:[phone] fax:[phone] Referral ID Status Reason Start Date Expiration Date Visits Re quested Visits Authorized [id number] Closed 08/21/2014 09/21/2015 1 1 Encounter Details Date Type Department Care Team (Latest Contact Info) Description 08/21/2014 Ancillary Orders [facility] Interventional Radiology OR [address] [place] [id number] Guanakito Inman MD [address] [place] [address] AAA (abdominal aortic aneurysm) without rupture (Primary [...] Exam was auto-finalized as part of the [employer] Single Instance conversion project. Procedure Note Bar Mcdermott Deborah - 11/28/2020 Order information only. Exam was auto-finalized as part of the [employer] Single Instance conversion project. Guanakito Inman MD FLUOROSCOPY ORDERABLES Fi nal Result documented in this encounter Visit Diagnoses Diagnosis AAA (abdominal aortic aneurysm) without rupture- Primary Abdominal aneurysm without mention of rupture documented in this encounter Care Teams Hat Presser Relationship Specialty Start Date End Date Ele Oropeza NP [address] [place] [address] PCP - General NURSE PRACTITIONER 01/22/19 documented as of this encounter
--- OUTSIDE RECORDS SUMMARY | 2024-07-31 18:51 | XMS_ITS | Continuity of Care Document ---
Author Organization [facility] Address [address] [place] [address] [address] [place] [address] Phone Care Team Providers Care Principal Systems Engineer Name Role Phone [facility] Unavailable Unavail able Jo Ceron Unavailable Unavailable Procedures Procedure Date Vision Svcs Frames Purchases BF Plastic Sphcyl [place] To +/-4d .12-2d Tax - Medical Eye Exam, New Patient Refraction Advance Directives Directive Yes / No Effective Date File Name No Information Encounters Encounter Description Practice Location Reason(s) For Visit Diagnoses Date Provider Providers Copied on Encounter [facility], [address] [place] [address] [facility], [place], [place], [id number], [place] tel:[phone] [facility] No Information Apr-0 4200 8 [facility] . [address] [facility], [facility] [address], [place], [id number], [place]. tel:[phone] Referring Provider: Mary Beth Lopez, [address], [place], [address]. tel:[phone] g Provider: Jo Ceron, [address] [facility], [place], [address]. tel:[phone] [facility], [address] [place] [address] [address], [place], [place], [id number], [place] tel:[phone] [facility] No Information May-0 4200 8 Nilda Clinton. [address] , [address], [place], [address], [place]. tel:[phone] Family History Family Member Type Diagnosis Age [...]
[2024-07-31 18:59] LABS: Hematocrit 36.8 % (37.0-46.0); Hemoglobin 12.4 g/dL (12.4-15.3); Mean Corpuscular HGB Conc 33.7 g/dL (32-36); Platelet Count Result 259 K/mm3 (150-420); Red Cell Distribution Width 13.2 % (11.6-14.4); White Blood Count 10.6 K/mm3 (4.8-10.8)
--- NOTE | 2024-07-31 18:59 | PC.NURSE ---
lab at bedside.
[2024-07-31 19:11] LABS: Ethanol < 10 mg/dL (<10)
[2024-07-31 19:12] LABS: Lactic Acid Reflex 1.1 mmol/L (0.4-2.0)
[2024-07-31 19:13] LABS: Partial Thromboplastin Time 28.4 Sec (23.9-30.70); Prothrombin Time 11.4 Seconds (9.50-12.1)
[2024-07-31] MEDS: ONDANSETRON INJ 4 MG/2 ML VIAL IV PUSH (19:17)
[2024-07-31] MEDS: SODIUM CHLORIDE 0.9% IV 1,000 ML 999 ML IV CONT (19:18)
[2024-07-31] MEDS: PANTOPRAZOLE SODIUM IV 40 MG VIAL IV PUSH (19:18)
[2024-07-31 19:20] LABS: Anion Gap 8 mmol/L (4-12); Blood Urea Nitrogen 36 mg/dL (9-20); Calcium 10.6 mg/dL (8.4-10.2); Carbon Dioxide 24 mmol/L (22-30); Chloride 105 mmol/L (98-107); Estimated CRCL calculation 28 ml/min; Estimated Glomerular Filt Rate 35; Glucose 100 mg/dL (65-110); Magnesium 2.1 mg/dL (1.6-2.3); Osmolality Calculated 292 mOsm/kg (285-295); Potassium 5.1 mmol/L (3.4-5.0); Sodium 137 mmol/L (137-145)
[2024-07-31 19:21] LABS: Alanine Aminotransferase 23 U/L (6-50); Albumin Level 4.2 g/dL (3.5-5.1); Alkaline Phosphatase 151 U/L (38-126); Aspartate Amino Transferase 39 U/L (17-59); Lipase 51 U/L (23-300); Total Protein 8.2 g/dL (6.3-8.2)
[2024-07-31 23:01] LABS: pH Gastric Fluid 3 (1-8)
[2024-07-31 23:02] LABS: Gastric Negative Control Negative; Gastric Positive Control Positive; Occult Blood Gastric Fluid Negative
[2024-07-31 23:30] VITALS: BMI 25.2
[2024-07-31] MEDS: ACETAMINOPHEN 325 MG TABLET 650 MG PO (23:34)
[2024-07-31] MEDS: buPROPion HCL SR (12 HR) 150 MG TAB PO (23:34)
--- NOTE | 2024-07-31 23:42 | ADMGEN ---
This patient, Caio Hanson, was admitted to 2nd Floor Room 204-2. Patient oriented to hospital policies and general routines including ID bracelet, bed and alarms, visiting hours, pain management, procedures, bathroom and other care routines, personal items, smoking policy, room service/diet, and visiting hours. Information on how to activate the Rapid Response Team has been discussed. Patient are encouraged to report perceived risks to care and to ask questions if they do not understand what they are told or what they should do.
[2024-07-31] MEDS: SODIUM CHLORIDE 0.9% IV 1,000 ML 100 ML IV CONT (23:45)
[2024-08-01] VITALS: BP 136/64; PULSE 78; RESP 18; TEMP 36.4; O2SAT 96
[2024-08-01] MEDS: ACETAMINOPHEN 325 MG TABLET 650 MG PO (05:30)
[2024-08-01 05:35] LABS: Basophils Absolute Auto 0.04 K/mm3 (0.00-0.10); Basophils Percent Auto 0.6 % (0.0-1.0); Eosinophils Absolute Auto 0.38 K/mm3 (0.02-0.50); Eosinophils Percent Auto 5.6 % (1.0-6.0); Hematocrit 33.9 % (37.0-46.0); Immature Granulocyte Absolute 0.03 K/mm3 (0.00-0.00); Immature Granulocyte Percent A 0.4 % (0.0-0.0); Lymphocytes Absolute Auto 1.49 K/mm3 (1.10-4.50); Mean Corpuscular HGB Conc 32.4 g/dL (32-36); Mean Corpuscular Hemoglobin 30.7 pg (27.0-31.0); Mean Corpuscular Volume 94.7 fL (78.0-102.0); Mean Platelet Volume 9.4 fl (8.7-11.0); Monocytes Absolute Auto 0.68 K/mm3 (0.10-0.90); Neutrophils Absolute Auto 4.15 K/mm3 (1.70-7.20); Neutrophils Percent Auto 61.4 % (50.0-70.0); Platelet Count Result 205 K/mm3 (150-420); Red Blood Count 3.58 M/mm3 (4.70-6.10); Red Cell Distribution Width 13.4 % (11.6-14.4); White Blood Count 6.8 K/mm3 (4.8-10.8)
[2024-08-01 05:59] LABS: Alanine Aminotransferase 17 U/L (6-50); Albumin Level 3.6 g/dL (3.5-5.1); Alkaline Phosphatase 131 U/L (38-126); Anion Gap 4 mmol/L (4-12); Aspartate Amino Transferase 32 U/L (17-59); Bilirubin,Total 0.6 mg/dL (0.2-1.3); Blood Urea Nitrogen 30 mg/dL (9-20); Carbon Dioxide 23 mmol/L (22-30); Chloride 111 mmol/L (98-107); Estimated CRCL calculation 41 ml/min; Estimated Glomerular Filt Rate 56; Glucose 87 mg/dL (65-110); Osmolality Calculated 291 mOsm/kg (285-295); Potassium 4.7 mmol/L (3.4-5.0); Sodium 138 mmol/L (137-145); Total Protein 7.3 g/dL (6.3-8.2)
--- OUTSIDE RECORDS SUMMARY | 2024-08-01 07:10 | XMS_ITS | Encounter Summary ---
Author Organization [facility] Address [address] [place] [address] Care Team Providers Care Salon Supervisor Name Role Phone Donnell Oropezalorrie Batista LANDS RESOURCE MANAGER Primary Care Provider [phone] Reason for Referral * Outpatient Services (Routine) - Closed Specialty Diagnoses / Procedures Referred By Contac t Referred To Contact Diagnoses AAA (abdominal aortic aneurysm) without rupture Procedures CL ARTERIAL FEMORAL RUNOFF Guanakito Inman MD Phone: tel:[phone] fax:[phone] Referral ID Status Reason Start Date Expiration Date Visits Re quested Visits Authorized [id number] Closed 08/21/2014 09/21/2015 1 1 Encounter Details Date Type Department Care Team (Latest Contact Info) Description 08/21/[address] [facility] Interventional Radiology [address] [place] [id number] Guanakito Inman MD [address] [place] [address] AAA (abdominal aortic aneurysm) without rupture (Primary [...] Exam was auto-finalized as part of the [employer] conversion project. Procedure Note Bar Mcdermott Deborah - 11/28/2020 Order information only. Exam was auto-finalized as part of the [employer] conversion project. Guanakito Inman MD FLUOROSCOPY ORDERABLES Fi nal Result documented in this encounter Visit Diagnoses Diagnosis AAA (abdominal aortic aneurysm) without rupture- Primary Abdominal aneurysm without mention of rupture documented in this encounter Care Teams Salon Supervisor Relationship Specialty Start Date End Date Ele Oropeza NP [address] [place] [address] PCP - General NURSE PRACTITIONER 01/22/19 documented as of this encounter
--- OUTSIDE RECORDS SUMMARY | 2024-08-01 07:10 | XMS_ITS | Clinical Summary ---
Author Organization [facility] de Address [address] [address] Phone Care Team Providers Care Linting Machine Operator Name Role Phone Sandip Ele L SEMICONDUCTOR WAFERS SAW OPERATOR Primary Care Provider [phone] Allergies No known active allergies Medications atorvastatin [...] Date Diagnosed Date Resolved Date Atherosclerosis of resighini ar rene of extremity with rest pain [...] Comments Blood Pressure 112/55 02/19/2020 12:01 PM CELEBRITY CHEF ENTREPRENEUR MEDIA PERSONALITY Pulse 85 02/19/2020 12:01 PM CELEBRITY CHEF ENTREPRENEUR MEDIA PERSONALITY Temperature 36.4 C (97.5 F) 04/17/2017 7:13 AM CELEBRITY CHEF ENTREPRENEUR MEDIA PERSONALITY Respiratory Rate 15 04/17/2017 7:13 AM CELEBRITY CHEF ENTREPRENEUR MEDIA PERSONALITY Oxygen Saturation 97% 02/19/2020 12:01 PM CELEBRITY CHEF ENTREPRENEUR MEDIA PERSONALITY Inhaled Oxygen Concentration - - Weight 73 kg (161 lb) 02/19/2020 12:01 PM CELEBRITY CHEF ENTREPRENEUR MEDIA PERSONALITY Height 167.6 cm (5' 6) 02/19/2020 12:01 PM CELEBRITY CHEF ENTREPRENEUR MEDIA PERSONALITY Body Mass Index 25.99 02/19/2020 12:01 PM CELEBRITY CHEF ENTREPRENEUR MEDIA PERSONALITY Plan of Treatment Health Maintenance Due Date [...] series) 2025 Medical Devices Implanted Type Area Continuous Improvement Black Belt Device Identifier Shelf Expiration Date Model / Serial / Lot Stent Xcldr C3 Trnk-Ipsilat Leg [id number] - [id number] Implanted:Qty: 1 on 08/21/2014 by Guanakito Inman MD at [facility] Stent N/A: Abdomen [employer] 08/13/2016 [id number] / [id number] / Stent Xcldr Contralat Leg [id number] - [id number] Implanted:Qty: 1 on 08/21/2014 by Guanakito Inman MD at [facility] Stent N/A: Abdomen [employer] 03/16/2017 [id number] / [id number] / Description:left common femo ral Stent Xcldr Contralat Leg [id number] - [id number] Implanted:Qty: 1 on 04/15/2017 by Marcel Ling MD at [facility] Stent Left: Aorta [employer] 04/17/2018 [id number] / [id number] / NA Stent Xcldr Iliac [employer] Supervisor [id number] - [id number] Implanted:Qty: 1 on 04/15/2017 by Marcel Ling MD at [facility] Stent Left: Iliac Artery [employer] 09/11/2018 [id number] / [id number] / NA Stent Abslt Pv [id number] - Sna Implanted:Qty: 1 on 04/15/2017 by Marcel Ling MD at [facility] Stent Left: Iliac Artery MCCABE- VASC DEVICE 01/14/2020 [id number] / [id number] / [id number] Description:External iliac a rtery Stent Ovation Ix Iliac Limb [id number] - Sn/A Implanted:Qty: 2 on 04/16/2017 by Marcel Ling MD at [facility] Stent Right: Aorta [employer] 01/28/2020 [id number] 100-J / N/A / [id number] Insurance [place] [id number] [facility] DUAL COMPLETE Advance Directives For more information, please contact: [phone] * Full Code (Latest Code Status on File) Date Activated Date Inactivated Comments 04/16/2017 4:30 PM 04/17/2017 2:21 PM * Full Code Date Activated Date Inactivated Comments 08/21/2014 4:44 PM 08/22/2014 2:20 PM Care Teams Linting Machine Operator Relationship Specialty Start Date End Date Ele Oropeza NP [address] [place] [address] PCP - General NURSE PRACTITIONER 01/22/19
--- OUTSIDE RECORDS SUMMARY | 2024-08-01 07:10 | XMS_ITS | Continuity of Care Document ---
Author Organization [facility] Address [address] [place] [address] [address] [place] [address] Phone Care Team Providers Care Rpg Programmer Analyst Name Role Phone [facility] Unavailable Unavail able Jo Ceron Unavailable Unavailable Procedures Procedure Date Vision Svcs Frames Purchases BF Plastic Sphcyl Lohman To +/-4d .12-2d Tax - Medical Eye Exam, New Patient Refraction Advance Directives Directive Yes / No Effective Date File Name No Information Encounters Encounter Description Practice Location Reason(s) For Visit Diagnoses Date Provider Providers Copied on Encounter [facility], [address] [place] [address] [facility], [place], [place], [id number], [place] tel:[phone] [facility] No Information Apr-0 4200 8 [facility] . [address] [facility], [facility] [address], [place], [id number], [place]. tel:[phone] Referring Provider: Mary Beth Lopez, [address], [place], [address]. tel:[phone] g Provider: Jo Ceron, [address] [facility], [place], [address]. tel:[phone] [facility], [address] [place] [address] [address], [place], [place], [id number], [place] tel:[phone] [facility] No Information May-0 4200 8 Nilda Clinton. [address] , [address], [place], [address], [place]. tel:[phone] Family History Family Member Type Diagnosis Age [...]
--- OUTSIDE RECORDS SUMMARY | 2024-08-01 07:11 | XMS_ITS | Clinical Summary ---
Author Organization [facility] de Address [address] [address] Phone Care Team Providers Care Mimeograph Operator Name Role Phone Ele Oropeza EVALUATION ASSISTANT Primary Care Provider [phone] Allergies No known active allergies Medications MELATONIN [...] Date Diagnosed Date Resolved Date Atherosclerosis of [place] ar rene of extremity with rest pain [...] on file Legal Sex Male 1:27 AM PRINTED CIRCUIT BOARDS SOLDER LEVELER Gender Identity Not on file Sexual Orientation Not on file Last Filed Vital Signs Vital Sign Reading Time Taken Comments Blood Pressure 118/60 03/02/2023 10:36 AM PRINTED CIRCUIT BOARDS SOLDER LEVELER Pulse 65 03/02/2023 10:36 AM PRINTED CIRCUIT BOARDS SOLDER LEVELER Temperature 36.4 C (97.5 F) 04/17/2017 7:13 AM PRINTED CIRCUIT BOARDS SOLDER LEVELER Respiratory Rate 15 04/17/2017 7:13 AM PRINTED CIRCUIT BOARDS SOLDER LEVELER Oxygen Saturation 96% 03/02/2023 10:36 AM PRINTED CIRCUIT BOARDS SOLDER LEVELER Inhaled Oxygen Concentration - - Weight 77.6 kg (171 lb) 03/02/2023 10:36 AM PRINTED CIRCUIT BOARDS SOLDER LEVELER Height 165.1 cm (5' 5) 03/02/2023 10:36 AM PRINTED CIRCUIT BOARDS SOLDER LEVELER Body Mass Index 28.46 03/02/2023 10:36 AM PRINTED CIRCUIT BOARDS SOLDER LEVELER Plan of Treatment Health Maintenance Due Date [...] 07/29/2017, 02/15/2012 Medical Devices Implanted Type Area Carbon Brushes Assembler Device Identifier Shelf Expiration Date Model / Serial / Lot Stent Xcldr C3 Trnk-Ipsilat Leg [id number] - [id number] Implanted:Qty: 1 on 08/21/2014 by Guanakito Inman MD Stent N/A: Abdomen [employer] 08/13/2016 [id number] / [id number] / Stent Xcldr Contralat Leg [id number] - [id number] Implanted:Qty: 1 on 08/21/2014 by Guanakito Inman MD Stent N/A: Abdomen [employer] 03/16/2017 [id number] / [id number] / Description:left common femo ral Stent Abslt Pv [id number] - Sna Implanted:Qty: 1 on 04/15/2017 by Marcel Ling MD Stent Left: Iliac Artery MCC[employer] VASC DEVICE 01/14/2020 [id number] / [id number] / [id number] Description:External iliac a rtery Stent Xcldr Contralat Leg [id number] - [id number] Implanted:Qty: 1 on 04/15/2017 by Marcel Ling MD Stent Left: Aorta [employer] 04/17/2018 [id number] / [id number] / NA Stent Xcldr Iliac Hoop Maker [id number] - [id number] Implanted:Qty: 1 on 04/15/2017 by Marcel Ling MD Stent Left: Iliac Artery [employer] 09/11/2018 [id number] / [id number] / NA Stent Ovation Ix Iliac Limb [id number] - Sn/A Implanted:Qty: 2 on 04/16/2017 by Marcel Ling MD Stent Right: Aorta [employer] 01/28/2020 [id number] 100-J / N/A / [id number] [place] [id number] [facility] [id number] Care Teams Mimeograph Operator Relationship Specialty Start Date End Date Ele Oropeza NP [address] [place] [address] PCP - General 05/23/20
--- OUTSIDE RECORDS SUMMARY | 2024-08-01 07:18 | XMS_ITS | Continuity of Care Document ---
Author Organization [facility] Address [address] [place] [address] [address] [place] [address] Phone Care Team Providers Care Cloth Hauler Name Role Phone [facility] Unavailable Unavail able Jo Ceron Unavailable Unavailable Procedures Procedure Date Vision Svcs Frames Purchases BF Plastic Sphcyl Girdler To +/-4d .12-2d Tax - Medical Eye Exam, New Patient Refraction Advance Directives Directive Yes / No Effective Date File Name No Information Encounters Encounter Description Practice Location Reason(s) For Visit Diagnoses Date Provider Providers Copied on Encounter [facility], [address] [place] [address] [facility] [address], [place], [place], [id number], [place] tel:[phone] [facility] No Information Apr-0 4200 8 [facility] . [address] [facility], [facility] [address], [place], [id number], [place]. tel:[phone] Referring Provider: Mary Beth Lopez, [address], [place], [address]. tel:[phone] g Provider: oJ Ceron, [address] [facility], [place], [address]. tel:[phone] [facility], [address] [place] [address] [address], [place], [place], [id number], [place] tel:[phone] [facility] No Information May-0 4200 8 Nilda Clinton. [address] , [address], [place], [address], [place]. tel:[phone] Family History Family Member Type Diagnosis Age At Onset No Information Payers Payer name Insurance type Covered republican ID Authoriza tion(s) No Information Social History [...]
[2024-08-01 08:00] VITALS: BP 101/55; PULSE 73; RESP 18; TEMP 36.5; O2SAT 95
[2024-08-01] MEDS: NICOTINE (*PBKC) 21 MG PATCH 1 PATCH TRANSDERM (08:44)
[2024-08-01] MEDS: CLOPIDOGREL BISULFATE 75 MG TABLET PO (08:45)
[2024-08-01] MEDS: PANTOPRAZOLE 40 MG TABLET PO (08:46)
[2024-08-01] MEDS: LOSARTAN POTASSIUM 50 MG TABLET 100 MG PO (08:46)
[2024-08-01] MEDS: amLODIPine BESYLATE 5 MG TABLET PO (08:46)
[2024-08-01] MEDS: buPROPion HCL SR (12 HR) 150 MG TAB PO (08:46)
[2024-08-01] MEDS: EZETIMIBE 10 MG TABLET PO (08:46)
--- NOTE | 2024-08-01 11:10 | P.SS_ITS ---
Same Day Admit/Disch: HPI History of Present Illness Chief complaint: NAUSEA VOMITING DIARRHEA Narrative: Caio Hanson is a 73 year old male who presents to the emergency department with complaints nausea vomiting and diarrhea. Patient had reported 2 days prior to arrival he had eaten that night and on Tuesday woke up with no appetite due to being nauseous and then began to vomiting and diarrhea. patient reported past medical history of HTN, COPD, AAA, and everyday smoker. patient stated her a few episodes of vomiting he thought he saw blood in his vomit reports he is on Plavix for previous iliac stents. patient denied any chest pain, shortness a breath, fever, chills, dizziness and denied being around any sick contacts. In the ED: CT abdomen showed multiple loops of fluid-filled bowel without dilation or surrounding inflammatory changes consistent with his history. potassium mildly elevated at 5.1 but did show an acute kidney injury with creatinine at 1.88 secondary to his dehydration from vomiting and hemodynamically stable. Patient was then admitted to the medical further evaluation and treatment dehydration and acute kidney injury. [facility] Past Medical History Medical History (Updated 08/01/24 @ 11:21 by Caitlin Hunter APRN) Mixed hyperlipidemia Esophageal reflux Degeneration of lumbar or lumbosacral intervertebral disc Degeneration of intervertebral disc, site unspecified Benign hypertension Abdominal aneurysm without mention of rupture Tobacco abuse COPD (chronic obstructive pulmonary disease) Family History Family History Sibling Cancer Social History Social History Smoking packs per day: 1 Smoking cigarettes per day: 20.0 Years smoked: 60 Smoking pack-years: 60.00 Smoking status: Former smoker Tobacco type: cigarettes Second hand tobacco smoke exposure: No Smoking end date: 06/29/24 Alcohol intake: never Substance use: never Substance use type: does not use Do You Feel Safe in your Home?: Yes Lack of Transportation: No Lack of Food: Never True Current Housing: I Have Housing Concerned About Future Housing: No Difficulty Paying Gas/Electric Bills: No Difficulty Paying for Meds: No Currently Unemployed: No Education: High School Diploma/GED Difficulty w/ Childcare or Family Care: No Living arrangements: with family Gender identity (if verbalized by the patient): Male Spiritual care concerns: No Same Day Admit/Disch: Med Pre-admit Medications Home Medications ?Medication ?Instructions ?Recorded ?Confirmed ?Type albuterol sulfate 90 mcg/actuation 2 inh inhalation Q4-6H PRN 06/21/24 08/01/24 History breath activated powder inhaler shortness of breath or wheezing amlodipine 5 mg tablet 5 mg PO DAILY 06/21/24 08/01/24 History atorvastatin 40 mg tablet (Lipitor) 40 mg PO QHS 06/21/24 08/01/24 History clopidogrel 75 mg tablet 75 mg PO DAILY 06/21/24 08/01/24 History losartan 100 mg tablet 100 mg PO DAILY 06/21/24 08/01/24 History ezetimibe 10 mg tablet (Zetia) 10 mg PO DAILY #90 tabs 06/25/24 08/01/24 Rx nicotine 21 mg/24 hr daily 1 patch transdermal DAILY #28 ea 06/25/24 08/01/24 Rx transdermal patch bupropion HCl 150 mg tablet,12 hr See Rx Instructions .Route 07/11/24 08/01/24 Rx sustained-release .COMPLEX #180 tabs ondansetron 4 mg disintegrating 4 mg PO Q8H PRN nausea and 08/01/24 Rx tablet vomiting #20 tabs pantoprazole 40 mg tablet,delayed 40 mg PO Q12HR #30 tabs 08/01/24 Rx release Review of Systems Review of Systems All systems reviewed & are unremarkable except as noted in HPI and below Exam Const: General: comfortable and no acute distress HENMT: Ears: TM's normal bilaterally Face/Nose/Sinus: Normal nares present Mouth: Yes moist mucous membranes Eyes: General: appearance normal, both eyes and all related structures Sclera: sclerae normal Pupils: Equal, round and reactive pupils present Neck: Neck: supple and no JVD Resp: Effort & Inspection: normal respiratory effort Auscultation: wheezes scattered wheezes Cardio: Rate: regular rate Rhythm: regular rhythm GI: GI Palp: Yes Soft to palpation and Yes Tenderness to palpation present (GI) (Secondary to vomiting) Auscultation: normal bowel sounds Skin: General skin exam: normal color and no rashes or lesions noted Neuro: General: gait normal Speech: normal speech Motor exam (neuro): 5/5 motor strength present throughout Sensory Exam: normal sensation Extrem: General: normal to inspection Psych: Mental Status: mental status grossly normal Affect: normal affect DS: Data Data Completed and Pending Labs on day of discharge: Labs from last 24 hours 08/01/24 07/31/24 07/31/24 05:00 23:01 18:55 WBC 6.8 10.6 RBC 3.58 L 4.00 L Hgb 11.0 L 12.4 Hct 33.9 L 36.8 L MCV 94.7 92.0 MCH 30.7 31.0 MCHC 32.4 33.7 RDW 13.4 13.2 Plt Count 205 259 MPV 9.4 9.0 Immature Gran % (Auto) 0.4 H Neut % (Auto) 61.4 Lymph % (Auto) 22.0 Cass % (Auto) 10.0 Eos % (Auto) 5.6 Baso % (Auto) 0.6 Lymph # (Auto) 1.49 Cass # (Auto) 0.68 Eos # (Auto) 0.38 Baso # (Auto) 0.04 Abs Immat Gran (auto) 0.03 H Absolute Neuts (auto) 4.15 Absolute Nucleated RBC 0.00 Nucleated RBC % 0.0 PT 11.4 INR 1.0 APTT 28.4 Sodium 138 137 Potassium 4.7 5.1 H Chloride 111 H 105 Carbon Dioxide 23 24 Anion Gap 4 8 BUN 30 H 36 H D Creatinine 1.26 1.88 H Estim Creat Clear Calc 41 28 Estimated GFR 56 L 35 L Glucose 87 100 Calculated Osmolality 291 292 Lactic Acid 1.1 Calcium 10.0 10.6 H Magnesium 2.1 Total Bilirubin 0.6 1.0 AST 32 39 ALT 17 23 Alkaline Phosphatase 131 H 151 H Total Protein 7.3 8.2 Albumin 3.6 4.2 Lipase 51 Gastric Fluid pH 3 Gastric Occult Blood Negative Ethyl Alcohol < 10 Imaging Radiologist's impression: CLINICAL INDICATION: Nausea and vomiting COMPARISON: 06/27/2024. TECHNIQUE: Multiple contiguous axial images of the abdomen and pelvis were performed without the administration of intravenous contrast The dose-length product (DLP) was 537.74 mGy-cm. Automated exposure control and iterative reconstruction technique were employed. FINDINGS/OBSERVATIONS: Visualized lower thorax: Interstitial thickening is detected bilaterally. Subpleural honeycombing is also noted. The remainder of the bilateral lung bases are clear. The heart is of normal size, without pericardial effusion. Small hiatal hernia is present. Liver: The liver demonstrates homogeneous attenuation and is not enlarged. Gallbladder and biliary system: The gallbladder is only minimally distended, and otherwise unremarkable. Pancreas: Limited evaluation of the pancreas secondary to the lack of intravenous contrast. Spleen: The spleen demonstrates homogeneous attenuation and is not enlarged. Kidneys: Scattered 2 and 3mm stones within the bilateral kidneys, without hydronephrosis. Adrenal glands: Unremarkable. Gastrointestinal tract: Multiple loops of fluid-filled bowel are identified, without dilatation or surrounding inflammatory change. Appendix: The air-filled appendix is of normal caliber (axial series, images 85 through 90) Vasculature: Aortobifemoral endograft is identified, extending into the left common femoral artery. Lymph nodes: Limited evaluation without intravenous contrast. Pelvic structures: The bladder is distended, and otherwise unremarkable. The prostate gland is not enlarged, and contains multiple calcified stones. Body wall and musculoskeletal: Fat-containing right inguinal hernia. Small fat-containing umbilical hernia. Age-appropriate degenerative disease within the lower thoracic and lumbosacral spine. Redemonstration of compression fracture at the level of T12. IMPRESSION: Multiple loops of fluid-filled bowel without dilatation or surrounding inflammatory change, consistent with patient's history. No additional acute findings within the lower chest, abdomen or pelvis. DS: Summary Hospital Course Hospital Course: Admission: Caio Hanson is a 73 year old male who presents to the emergency department with complaints nausea vomiting and diarrhea. Patient had reported 2 days prior to arrival he had eaten that night and on Tuesday woke up with no appetite due to being nauseous and then began to vomiting and diarrhea. patient reported past medical history of HTN, COPD, AAA, and everyday smoker. patient stated her a few episodes of vomiting he thought he saw blood in his vomit reports he is on Plavix for previous iliac stents. patient denied any chest pain, shortness a breath, fever, chills, dizziness and denied being around any sick contacts. In the ED: CT abdomen showed multiple loops of fluid-filled bowel without dilation or surrounding inflammatory changes consistent with his history. potassium mildly elevated at 5.1 but did show an acute kidney injury with creatinine at 1.88 secondary to his dehydration from vomiting and hemodynamically stable. Hospital course Patient was then admitted to the medical further evaluation and treatment dehydration and acute kidney injury. patient continued with IV fluids overnight and antiemetics patient reported resolution to his diarrhea the following morning and nausea was subsided he was tolerating oral intake with no further vomiting. Patient's hemoglobin remained stable did have a small drop likely due to dilution. patient had also been started on a Protonix b.i.d. for possible service gastritis secondary to vomiting. patient with overall improvement to symptoms acute kidney injury had resolved with administration of IV fluids patient tolerating advance diet with electrolytes within desirable range. Patient ambulatory on own, he was discharged with Protonix 40 mg twice a day for 15 days and Zofran as needed for any further nausea encouraged oral hydration and to advance diet as tolerated recommended planned small frequent meals and instructed to follow up with his primary care physician to review over previous diagnostic scans noted in chart regarding findings on his CTA chest abdomen and pelvis. Status at Discharge Functional status at discharge: independent ambulation Overall status at discharge: patient is progressing back to baseline Time Spent with Patient Time attestation: Total time spent providing and/or coordinating discharge services: Time spent: Greater than 30 minutes DS: Admitting Diagnosis Discharge Date 08/01/2024 Admitting Diagnosis acute kidney injury/ dehydration/N/VD DS: Discharge Diagnosis Discharge Diagnosis (1) Hypertension: Code(s): I10 - Essential (primary) hypertension Status: Acute (2) Nausea and vomiting: Qualifiers: Vomiting type: unspecified Qualified Code(s): R11.2 - Nausea with vomiting, unspecified Code(s): R11.2 - Nausea with vomiting, unspecified Status: Acute (3) Acute kidney injury: Code(s): N17.9 - Acute kidney failure, unspecified Status: Acute (4) Acute dehydration: Code(s): E86.0 - Dehydration Status: Acute (5) Tobacco abuse: Code(s): Z72.0 - Tobacco use Status: Acute (6) COPD (chronic obstructive pulmonary disease): Code(s): J44.9 - Chronic obstructive pulmonary disease, unspecified Status: Acute Discharge Plan Discharge Attending physician on discharge: Mary Kern Consulting providers: Caitlin Hunter Discharging Clinician: Caitlin Hunter Anticipated Discharge Date/Time: 08/01/24 10:57 Patient Disposition: Home Activity: may shower and as tolerated Diet: as tolerated, bland and other - see discharge instructions Discharge Instructions: 1). Nausea/vomiting/diarrhea ( Enteritis) * Continue with oral hydration * advance diet as tolerated recommend bland small frequent meals * Your gastroccult (blood in sputum) was negative and blood counts were with in normal range * I have prescribed a Protonix for possible ulcer or gastritis from vomiting as well as Zofran to be taken as needed for nausea * Your blood pressure is stable you may resume your blood pressure medications 2). Acute kidney injury * You had an acute kidney injury secondary to dehydration which resolved with administration of the IV fluids received I do however encourage continued oral hydration home. Please follow-up with your primary care physician within 2-4 weeks How can you care for yourself at home? ? Keep track of any new symptoms or changes in your symptoms. ? Rest until you feel better. ? Be safe with medicines. Take your medicines exactly as prescribed. Call your doctor if you think you are having a problem with your medicine. ? Do not drive after taking a prescription pain medicine. ? Ensure to follow-up with primary care physician as indicated and provide updated medication list provided to you at discharge. When should you call for help? Call 911 anytime you think you may need emergency care. For example, call if: ? You passed out (lost consciousness). Call your doctor now or seek immediate medical care if: ? You have new symptoms like fever, difficulty breathing, Chest pain, vomiting, or rash. ? You have new or different pain. ? You are confused and are having trouble thinking clearly. ? Your symptoms are getting worse. Watch closely for changes in your health, and be sure to contact your doctor if: ? You do not get better as expected. Patient Instructions: Antibiotic Form, Gastritis (DC), Dehydration (DC), Acute Kidney Injury (DC), Enteritis (DC) Patient Language: French Stand Alone Forms: General Discharge Information Follow-up/Referrals: Sincere Pettit, [Primary Care Provider] - Discharge Medications: New pantoprazole 40 mg Tablet,Delayed Release (Dr/Ec) 40 mg PO Q12HR Qty: 30 0RF Rx Instructions: Take for 15 days ondansetron 4 mg tablet,disintegrating 4 mg PO Q8H PRN (Reason: nausea and vomiting) Qty: 20 0RF Continued amlodipine 5 mg tablet 5 mg PO DAILY losartan 100 mg tablet 100 mg PO DAILY clopidogrel 75 mg tablet 75 mg PO DAILY atorvastatin [Lipitor] 40 mg tablet 40 mg PO QHS albuterol sulfate 90 mcg/actuation aerosol powdr breath activated 2 inh inhalation Q4-6H PRN (Reason: shortness of breath or wheezing) ezetimibe [Zetia] 10 mg tablet 10 mg PO DAILY Qty: 90 0RF nicotine 21 mg/24 hr patch 24 hour 1 patch transdermal DAILY Qty: 28 0RF bupropion HCl 150 mg tablet sustained-release 12 hr See Rx Instructions .ROUTE .COMPLEX Qty: 180 3RF Dose Instruction: TAKE 1 TABLET BY MOUTH TWICE DAILY Rx Instructions: TAKE 1 TABLET BY MOUTH TWICE DAILY Date of admission: 07/31/24 22:52 Primary Care Provider: Sincere Pettit Admitting Provider: Mary Kern Attending physician on admission: Mary Kern Condition: Stable Quality -Patient's previous records reviewed on admission -ER notes reviewed in detail on admission -discussed all findings and current treatment plan with patient/Family/POA -Consultations reviewed for recommendations -Patient's disposition for safe discharge discussed with supervisor case loading Dictation performed by [employer] direct speech recognition software, therefore nuclear equipment operator variants and typographical errors may occur. Hospitalist MIPS Advance Care Plan I have confirmed that the patient's Advanced Care Plan is present, code status is documented, or surrogate decision maker is listed in patient medical record.: Yes Medication Reconciliation I have utilized all available resources to obtain, update and review the patients current medications (includes all prescriptions, OTC, herbals, cannabis, and nutritional supplements).: Yes The patient is not eligible for med reconciliation; the patient is in a emergent medical situation where delaying treatment would jeopardize the patients health.: No Heart Failure (Exclusion) Patient has history of Heart Transplant or Left Ventricular Assistive Device?: No IF YES, STOP HERE Heart Failure (Qualifier) Patient has current or prior documentation of LVEF less than or equal to 40%, or mod/servere depressed LVSF?: No IF NO, STOP HERE
--- NOTE | 2024-08-01 11:55 | PC.NURSE ---
Discharge instructions reviewed with patient and family. Patient taken off floor per wheelchair.
--- NOTE | 2024-08-02 09:32 | PC.NURSE ---
Spoke with Caio for discharge call back. He was able to tell me all discharge instructions given on his one. He informs he will be making appointment with Dr. Pettit today.
== END 2024-08-01 11:55 | disposition home or self-care (01) ==
LOC: CHSED 23:07 → CHS2ND 08-01 07:05
PROVIDERS: Admitting Provider Internal Medicine; Emergency Provider Emergency Medicine; PCP Family Medicine; Visit Provider Internal Medicine
DX: N17.9 Acute kidney failure, unspecified (principal); E86.0 Dehydration; R11.2 Nausea with vomiting, unspecified; J44.9 Chronic obstructive pulmonary disease, unspecified; I10 Essential (primary) hypertension; I71.40 Abdominal aortic aneurysm, without rupture, unspecified; E78.5 Hyperlipidemia, unspecified; K21.9 Gastro-esophageal reflux disease without esophagitis; M51.369 Other intervertebral disc degeneration, lumbar region without mention of lumbar back pain or lower extremity pain; Z79.02 Long term (current) use of antithrombotics/antiplatelets; Z79.51 Long term (current) use of inhaled steroids; Z79.899 Other long term (current) drug therapy; Z87.891 Personal history of nicotine dependence; Z95.820 Peripheral vascular angioplasty status with implants and grafts
CPT/HCPCS: 36415; 74176; 80053; 82077; 82271; 83605; 83690; 83735; 83986; 85025; 85027; 85610; 85730; 96361; 96374; 96375; 96376; 99285; A9270; G0378; J2405; J2470; J7030

== ENCOUNTER 2024-08-05 07:27 | Emergency (ER) | payer MEDICARE, SELFPAY ==
--- NOTE | ~2024-08-05 | CT_ITS ---
CT Angiogram of the Abdomen and Pelvis with lower extremity runoff: Indication: Right groin pain radiating to right leg Technique: 2.5 mm axial scans were obtained through the abdomen and pelvis following intravenous adm inistration of 150 cc of Omnipaque 350. Dose reduction technique was used on this scan by utilizing a utomated exposure control and iterative reconstruction technique. The dose-length product (DLP) was 6 75.49 mGy-cm. COMPARISON: 07/31/2024 and 06/27/2024 Findings: Scans through the lung bases is a moderate emphysematous change. There is partially imaged right hilar lymphadenopathy. The liver, pancreas, gallbladder, and kidneys are within normal limits. There has been significant in terval increase in the size of bilateral adrenal masses, with left adrenal mass now measuring 5.5 x 3 .5 cm, and right adrenal mass measuring 4.4 x 3.1 cm. There are multiple hypodense masses in the sple en, largest measuring 2.8 cm in diameter. No lymphadenopathy. No bowel obstruction or bowel wall thickening. There is no evidence to suggest acute appendicitis. Images through the pelvis were performed. Urinary bladder unremarkable. Prostate gland mildly enlarge d. No ascites. Aortic stent graft in place. Right common iliac artery, external iliac artery, and common femoral art luz maria are patent. There is focal calcified plaque at the right common femoral artery with approximately 50% stenosis present. Right profunda femoral artery, femoral artery, and popliteal artery are patent . There is multifocal atherosclerotic calcification of the distal femoral artery with areas of modera te to high-grade stenosis present. Trifurcation right popliteal artery is unremarkable, and the right anterior tibial, posterior tibial, and peroneal arteries are patent. Right dorsalis pedis artery is probably patent. There is focal moderate to high-grade stenosis at the distal portion of the left com mon iliac artery stent. Remainder of the left external iliac, left common femoral, left femoral, and left popliteal arteries are patent. There is multifocal atherosclerotic calcification at the distal l eft femoral artery with areas of moderate stenosis present. Trifurcation of left popliteal artery is unremarkable, and the left anterior tibial, posterior tibial, and peroneal arteries are patent. Left dorsalis pedis artery appears patent. No soft tissue mass or other soft tissue reality evident in either lower extremity. Somewhat heteroge neous ill-defined appearance of the penis, with distortion of normal anatomy for CT imaging. Impression: Findings compatible with interval progression of metastatic disease. Right hilar lymphadenopathy is s imilar to prior exam, but there has been significant interval increase in bilateral adrenal masses as well as splenic masses, which are suspicious for metastatic disease. Workup for underlying malignanc y is recommended if not already performed. Partial heterogeneous somewhat masslike appearance of the penis with distortion of anatomy definition s. Correlate with physical exam for penile mass. Multifocal atherosclerotic disease of the bilateral femoral arteries, as detailed above, with aortic stent graft in place. No large vessel occlusion in either lower extremity. Reviewed, dictated and finalized at location M. Impression: Findings compatible with interval progression of metastatic disease. Right braydon r lymphadenopathy is similar to prior exam, but there has been significant inte rval increase in bilateral adrenal masses as well as splenic masses, which are suspicious for metastatic disease. Workup for underlying malignancy is recommen ded if not already performed. Partial heterogeneous somewhat masslike appearance of the penis with distortion of anatomy definitions. Correlate with physical exam for penile mass. Multifocal atherosclerotic disease of the bilateral femoral arteries, as detail ed above, with aortic stent graft in place. No large vessel occlusion in either lower extremity.
--- NOTE | ~2024-08-05 | XR_ITS ---
Lumbosacral Spine: AP and lateral views Clinical History: Pain Findings: There is moderate compression fracture of T12, age-indeterminate. Probable minimal anterior wedging deformity of L1. There is moderate to advanced degenerative disc 9 throughout the lumbar spi ne, worst at L4-L5 and L5-S1. There is severe facet arthropathy throughout the lumbar spine. The inte rvertebral disc spaces are preserved. The sacroiliac joints are normally outlined. Aortic stent eduar t present. Impression: Compression fractures of T12 and L1, as detailed above, age-indeterminate. Advanced degenerative spondylosis of the lumbar spine. Reviewed, dictated and finalized at location . Impression: Compression fractures of T12 and L1, as detailed above, age-indeterminate. Advanced degenerative spondylosis of the lumbar spine.
[2024-08-05 07:27] VITALS: BP 131/76; PULSE 80; RESP 18; TEMP 36.4; O2SAT 98
--- NOTE | 2024-08-05 07:35 | ED_ITS ---
HPI - General Adult General Chief complaint: Extremity Problem,Nontraumatic Stated complaint: right side sciatic pain Time Seen by Provider: 08/05/24 07:29 History of Present Illness HPI narrative: Linden is a 73M with a PMH of tobacco use, COPD, HTN and AAA s/p repair in 2018 and later occlusion that presented tot he ED with pain in his back that radiates down his right lateral leg to his foot. No trauma, loss of bowel/bladderl control, or weakness. It feels like previous arterial occlusion from PAD. Related Data Home Medications ?Medication ?Instructions ?Recorded ?Confirmed ?Last Taken ?Type albuterol sulfate 90 mcg/actuation 2 inh inhalation Q4-6H PRN 06/21/24 08/01/24 Unknown History breath activated powder inhaler shortness of breath or wheezing amlodipine 5 mg tablet 5 mg PO DAILY 06/21/24 08/01/24 08/01/24 History atorvastatin 40 mg tablet (Lipitor) 40 mg PO QHS 06/21/24 08/01/24 08/01/24 History clopidogrel 75 mg tablet 75 mg PO DAILY 06/21/24 08/01/24 08/01/24 History losartan 100 mg tablet 100 mg PO DAILY 06/21/24 08/01/24 08/01/24 History Allergies Allergy/AdvReac Type Severity Reaction Status Date / Time No Known Allergies Allergy Unknown Verified 08/05/24 07:29 Review of Systems 2 Review of Systems: All systems reviewed & are unremarkable except as noted in HPI and below PMFSH Past Medical History Medical History Mixed hyperlipidemia Esophageal reflux Degeneration of lumbar or lumbosacral intervertebral disc Degeneration of intervertebral disc, site unspecified Benign hypertension Abdominal aneurysm without mention of rupture Tobacco abuse COPD (chronic obstructive pulmonary disease) Family History Family History Sibling Cancer Social History Social History Smoking packs per day: 1 Smoking cigarettes per day: 20.0 Years smoked: 60 Smoking pack-years: 60.00 Smoking status: Former smoker Tobacco type: cigarettes Second hand tobacco smoke exposure: No Smoking end date: 06/29/24 Alcohol intake: never Substance use: never Substance use type: does not use Do You Feel Safe in your Home?: Yes Lack of Transportation: No Lack of Food: Never True Current Housing: I Have Housing Concerned About Future Housing: No Difficulty Paying Gas/Electric Bills: No Difficulty Paying for Meds: No Currently Unemployed: No Education: High School Diploma/GED Difficulty w/ Childcare or Family Care: No Living arrangements: with family Gender identity (if verbalized by the patient): Male Spiritual care concerns: No Exam 2 Const: General: cooperative, healthy appearing, comfortable, no acute distress, well developed, alert, awake and Physically active O rientation/consciousness: oriented to person, oriented to place and oriented to time HENMT: Head: normal to inspection, normocephalic and atraumatic Ears: h earing grossly normal bilaterally and external ears normal Face/Nose/Sinus: N ormal external nose present Eyes: General: appearance normal, both eyes and all related structures P eriorbital: periorbital findings normal Sclera: sclerae normal Pupils: E qual, round and reactive pupils present Neck: Neck: normal visual inspection Chest: Chest palpation & inspection: normal inspection of the chest Resp: Effort & Inspection: normal respiratory effort, able to speak in complete sentences and no respiratory distress Auscultation: clear to auscultation bilaterally Cardio: Jugular venous distension: no JVD Rate: regular rate Rhythm: r egular rhythm GI: Inspection: normal to inspection GI Palp: Yes Soft to palpation A uscultation: normal bowel sounds Skin: General skin exam: normal color and no rashes or lesions noted Neuro: General: oriented to person, oriented to place and oriented to time Cranial nerves: Yes Equal, round and reactive pupils present Other: Lower extremities have 5/5 symmetrical strength bilaterally Extrem: General: normal to inspection Other: decreased pedal pulse on the right Course Course Emergency Course: Ordered [place] and cyclobenzaprine for the back pain. Labs and CT ordered as well Lumbosacral Spine: AP and lateral views Clinical History: Pain Findings: There is moderate compression fracture of T12, age-indeterminate. Probable minimal anterior wedging deformity of L1. There is moderate to advanced degenerative disc 9 throughout the lumbar spine, worst at L4-L5 and L5-S1. There is severe facet arthropathy throughout the lumbar spine. The intervertebral disc spaces are preserved. The sacroiliac joints are normally outlined. Aortic stent graft present. Impression: Compression fractures of T12 and L1, as detailed above, age-indeterminate. Advanced degenerative spondylosis of the lumbar spine. CT Angiogram of the Abdomen and Pelvis with lower extremity runoff: Indication: Right groin pain radiating to right leg Technique: 2.5 mm axial scans were obtained through the abdomen and pelvis following intravenous administration of 150 cc of Omnipaque 350. Dose reduction technique was used on this scan by utilizing automated exposure control and iterative reconstruction technique. The dose-length product (DLP) was 675.49 mGy-cm. COMPARISON: 07/31/2024 and 06/27/2024 Findings: Scans through the lung bases is a moderate emphysematous change. There is partially imaged right hilar lymphadenopathy. The liver, pancreas, gallbladder, and kidneys are within normal limits. There has been significant interval increase in the size of bilateral adrenal masses, with left adrenal mass now measuring 5.5 x 3.5 cm, and right adrenal mass measuring 4.4 x 3.1 cm. There are multiple hypodense masses in the spleen, largest measuring 2.8 cm in diameter. No lymphadenopathy. No bowel obstruction or bowel wall thickening. There is no evidence to suggest acute appendicitis. Images through the pelvis were performed. Urinary bladder unremarkable. Prostate gland mildly enlarged. No ascites. Aortic stent graft in place. Right common iliac artery, external iliac artery, and common femoral artery are patent. There is focal calcified plaque at the right common femoral artery with approximately 50% stenosis present. Right profunda femoral artery, femoral artery, and popliteal artery are patent. There is multifocal atherosclerotic calcification of the distal femoral artery with areas of moderate to high-grade stenosis present. Trifurcation right popliteal artery is unremarkable, and the right anterior tibial, posterior tibial, and peroneal arteries are patent. Right dorsalis pedis artery is probably patent. There is focal moderate to high-grade stenosis at the distal portion of the left common iliac artery stent. Remainder of the left external iliac, left common femoral, left femoral, and left popliteal arteries are patent. There is multifocal atherosclerotic calcification at the distal left femoral artery with areas of moderate stenosis present. Trifurcation of left popliteal artery is unremarkable, and the left anterior tibial, posterior tibial, and peroneal arteries are patent. Left dorsalis pedis artery appears patent. No soft tissue mass or other soft tissue reality evident in either lower extremity. Somewhat heterogeneous ill-defined appearance of the penis, with distortion of normal anatomy for CT imaging. Impression: Findings compatible with interval progression of metastatic disease. Right hilar lymphadenopathy is similar to prior exam, but there has been significant interval increase in bilateral adrenal masses as well as splenic masses, which are suspicious for metastatic disease. Workup for underlying malignancy is recommended if not already performed. Partial heterogeneous somewhat masslike appearance of the penis with distortion of anatomy definitions. Correlate with physical exam for penile mass. Multifocal atherosclerotic disease of the bilateral femoral arteries, as detailed above, with aortic stent graft in place. No large vessel occlusion in either lower extremity. I discussed the results with Linden, and how it is likely cancer. He is aware. I sent a message to the healthcare representative to see if she could expedite the referral. He was more comfortable after the morphine. Vital Signs Vital signs: Vital Signs Temperature 97.6 F 08/05/24 07:27 Pulse Rate 80 08/05/24 07:27 Respiratory Rate 18 08/05/24 07:27 Blood Pressure 131/76 08/05/24 07:27 Pulse Oximetry 98 08/05/24 07:27 Oxygen Delivery Room Air 08/05/24 07:27 Temperature 97.6 F 08/05/24 07:27 Pulse Rate 80 08/05/24 07:27 Respiratory Rate 18 08/05/24 07:27 Blood Pressure 131/76 08/05/24 07:27 Pulse Oximetry 98 08/05/24 07:27 Oxygen Delivery Room Air 08/05/24 07:27 Medical Decision Making Vital Signs Vital Signs: Vital Signs Temperature 97.6 F 08/05/24 07:27 Pulse Rate 80 08/05/24 07:27 Respiratory Rate 18 08/05/24 07:27 Blood Pressure 131/76 08/05/24 07:27 Pulse Oximetry 98 08/05/24 07:27 Oxygen Delivery Room Air 08/05/24 07:27 Temperature 97.6 F 08/05/24 07:27 Pulse Rate 80 08/05/24 07:27 Respiratory Rate 18 08/05/24 07:27 Blood Pressure 131/76 08/05/24 07:27 Pulse Oximetry 98 08/05/24 07:27 Oxygen Delivery Room Air 08/05/24 07:27 Lab Data 08/05/24 07:43 08/05/24 07:43 Labs: Lab Results 08/05/24 Range/Units 07:43 WBC 7.9 (4.8-10.8) K/mm3 RBC 3.71 L (4.70-6.10) M/mm3 Hgb 11.4 L (12.4-15.3) g/dL Hct 34.7 L (37.0-46.0) % MCV 93.5 (78.0-102.0) fL MCH 30.7 (27.0-31.0) pg MCHC 32.9 (32-36) g/dL RDW 13.2 (11.6-14.4) % Plt Count 236 (150-420) K/mm3 MPV 9.3 (8.7-11.0) fl Immature Gran % (Auto) 0.5 H (0.0-0.0) % Neut % (Auto) 64.5 (50.0-70.0) % Lymph % (Auto) 18.8 (18.0-42.0) % [place] % (Auto) 9.2 (2.0-11.0) % Eos % (Auto) 6.2 H (1.0-6.0) % Baso % (Auto) 0.8 (0.0-1.0) % Lymph # (Auto) 1.49 (1.10-4.50) K/mm3 [place] # (Auto) 0.73 (0.10-0.90) K/mm3 Eos # (Auto) 0.49 (0.02-0.50) K/mm3 Baso # (Auto) 0.06 (0.00-0.10) K/mm3 Abs Immat Gran (auto) 0.04 H (0.00-0.00) K/mm3 Absolute Neuts (auto) 5.12 (1.70-7.20) K/mm3 Absolute Nucleated RBC 0.00 (0.00-0.00) K/mm3 Nucleated RBC % 0.0 (0-0.0) % PT 11.1 (9.50-12.1) Seconds INR 1.0 Sodium 136 L (137-145) mmol/L Potassium 4.9 (3.4-5.0) mmol/L Chloride 104 (98-107) mmol/L Carbon Dioxide 25 (22-30) mmol/L Anion Gap 7 (4-12) mmol/L BUN 20 D (9-20) mg/dL Creatinine 0.92 (0.7-1.3) mg/dL Estim Creat Clear Calc 55 ml/min Estimated GFR > 60 (59 - ) Glucose 101 (65-110) mg/dL Calculated Osmolality 284 L (285-295) mOsm/kg Calcium 10.9 H (8.4-10.2) mg/dL Discharge Plan Discharge Clinical Impression: T12 vertebral fracture, Metastatic disease Patient Disposition: Home Condition: Stable Instructions: Acute Low Back Pain (ED) Additional Instructions: Please [facility] the [facility] for further evaluation and treatment. Patient Language: Urdu Prescriptions: New oxycodone 5 mg tablet 5 mg PO Q6H PRN (Reason: pain) Qty: 12 0RF No Action pantoprazole 40 mg Tablet,Delayed Release (Dr/Ec) 40 mg PO Q12HR Qty: 30 0RF Rx Instructions: Take for 15 days ondansetron 4 mg tablet,disintegrating 4 mg PO Q8H PRN (Reason: nausea and vomiting) Qty: 20 0RF amlodipine 5 mg tablet 5 mg PO DAILY losartan 100 mg tablet 100 mg PO DAILY clopidogrel 75 mg tablet 75 mg PO DAILY atorvastatin [Lipitor] 40 mg tablet 40 mg PO QHS albuterol sulfate 90 mcg/actuation aerosol powdr breath activated 2 inh inhalation Q4-6H PRN (Reason: shortness of breath or wheezing) ezetimibe [Zetia] 10 mg tablet 10 mg PO DAILY Qty: 90 0RF nicotine 21 mg/24 hr patch 24 hour 1 patch transdermal DAILY Qty: 28 0RF bupropion HCl 150 mg tablet sustained-release 12 hr See Rx Instructions .ROUTE .COMPLEX Qty: 180 3RF Dose Instruction: TAKE 1 TABLET BY MOUTH TWICE DAILY Rx Instructions: TAKE 1 TABLET BY MOUTH TWICE DAILY Follow-up/Referrals: Sincere Pettit, [Primary Care Provider] -
[2024-08-05 07:47] LABS: Basophils Absolute Auto 0.06 K/mm3 (0.00-0.10); Basophils Percent Auto 0.8 % (0.0-1.0); Eosinophils Absolute Auto 0.49 K/mm3 (0.02-0.50); Eosinophils Percent Auto 6.2 % (1.0-6.0); Hematocrit 34.7 % (37.0-46.0); Hemoglobin 11.4 g/dL (12.4-15.3); Immature Granulocyte Absolute 0.04 K/mm3 (0.00-0.00); Immature Granulocyte Percent A 0.5 % (0.0-0.0); Lymphocytes Absolute Auto 1.49 K/mm3 (1.10-4.50); Lymphocytes Percent Auto 18.8 % (18.0-42.0); Mean Corpuscular HGB Conc 32.9 g/dL (32-36); Mean Corpuscular Hemoglobin 30.7 pg (27.0-31.0); Mean Corpuscular Volume 93.5 fL (78.0-102.0); Mean Platelet Volume 9.3 fl (8.7-11.0); Monocytes Absolute Auto 0.73 K/mm3 (0.10-0.90); Monocytes Percent Auto 9.2 % (2.0-11.0); Neutrophils Absolute Auto 5.12 K/mm3 (1.70-7.20); Neutrophils Percent Auto 64.5 % (50.0-70.0); Platelet Count Result 236 K/mm3 (150-420); Red Blood Count 3.71 M/mm3 (4.70-6.10); Red Cell Distribution Width 13.2 % (11.6-14.4); White Blood Count 7.9 K/mm3 (4.8-10.8)
[2024-08-05] MEDS: HYDROcodone/acetaminophen (*CRX) 5-325 MG TABLET 1 TAB PO (07:49)
[2024-08-05] MEDS: CYCLOBENZAPRINE HCL 10 MG TABLET PO (07:50)
[2024-08-05 07:59] LABS: Anion Gap 7 mmol/L (4-12); Blood Urea Nitrogen 20 mg/dL (9-20); Calcium 10.9 mg/dL (8.4-10.2); Carbon Dioxide 25 mmol/L (22-30); Chloride 104 mmol/L (98-107); Estimated CRCL calculation 55 ml/min; Estimated Glomerular Filt Rate > 60; Glucose 101 mg/dL (65-110); Osmolality Calculated 284 mOsm/kg (285-295); Potassium 4.9 mmol/L (3.4-5.0); Sodium 136 mmol/L (137-145)
[2024-08-05 08:00] LABS: Prothrombin Time 11.1 Seconds (9.50-12.1)
[2024-08-05] MEDS: MORPHINE SULFATE (*CRX) 4 MG/ML INJ IV PUSH (09:27)
[2024-08-05 09:59] VITALS: BP 135/77; PULSE 83; RESP 17; TEMP 36.6; O2SAT 99
== END 2024-08-05 09:59 | disposition home or self-care (01) ==
PROVIDERS: Emergency Provider Family Medicine; PCP Family Medicine
DX: S22.089A Unspecified fracture of T11-T12 vertebra, initial encounter for closed fracture (principal); C79.9 Secondary malignant neoplasm of unspecified site; I10 Essential (primary) hypertension; J44.9 Chronic obstructive pulmonary disease, unspecified; E78.2 Mixed hyperlipidemia; Z87.891 Personal history of nicotine dependence; X58.XXXA Exposure to other specified factors, initial encounter
CPT/HCPCS: 36415; 72100; 75635; 80048; 85025; 85610; 96374; 99284; A9270; J2270; Q9967